=== PATIENT | female | born 1995 | race Caucasian/White ===

== ENCOUNTER 2016-12-17 01:56 | Emergency (ER) | payer BC ==
[2016-12-17] MEDS ORDERED: Ketorolac 60 MG/2 ML SDV IM ONE (02:12)
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
[2016-12-17 03:15] VITALS: BP 121/76
--- NOTE | 2016-12-17 17:39 | CR ---
EXAM DATE: 12/17/16 PATIENT'S AGE: 21 Patient: SUNDAY MERINO Facility: [place], [place] Site . Site : 1995 Study: XRay Knee Right [id number]/[id number] 2:39:07 AM Ordering Physician: Doctor Michael Final Report: INDICATION: Knee injury TECHNIQUE: Knee radiograph 4 views right COMPARISON: None FINDINGS: Bones: Alignment is normal. No acute fractures or aggressive bone lesions identified. Joint spaces: Unremarkable. No knee effusion is seen on the lateral exam. Soft tissues: Unremarkable. No radiopaque foreign bodies are seen. IMPRESSION: 1. No acute osseous injuries are noted. Dictated by: Maxim Hunt MD @ 12/17/2016 02:41:06 (Electronic Signature) Report Signed by Proxy. [facility] HOSPITALYulisa
== END 2016-12-17 03:10 | disposition home or self-care (01) ==
LOC: MW.ED 01:56
DX: S83.91XA Sprain of unspecified site of right knee, initial encounter (principal); Z98.890 Other specified postprocedural states; Z88.0 Allergy status to penicillin; Z88.2 Allergy status to sulfonamides; Z88.8 Allergy status to other drugs, medicaments and biological substances; X58.XXXA Exposure to other specified factors, initial encounter; Y93.72 Activity, wrestling
CPT/HCPCS: 73562; 96372; 99283; J1885

== ENCOUNTER 2016-12-25 10:49 | Emergency (ER) | payer BC ==
[2016-12-25 11:01] VITALS: BP 127/66
[2016-12-25] MEDS ORDERED: Ketorolac 60 MG/2 ML SDV IM ONE (11:20)
--- NOTE | 2016-12-25 11:26 | EDM.PDOC ---
ED HPI GENERAL MEDICAL PROBLEM - General Chief Complaint: Lower Extremity Injury/Pain Stated Complaint: PAIN RT KNEE Time Seen by Provider: 12/25/16 11:14 - History of Present Illness INITIAL COMMENTS - FREE TEXT/NARRATIVE: HISTORY AND PHYSICAL: History of present illness: The patient is a healthy 21-year-old female who presents with complaints of persistent right knee pain for which she is ready being seen in our ortho clinic. The patient sustained the injury on December 17 and was seen here in the ER and is subsequently followed up with Dr. Rosales this past Tuesday. She had an MRI of this knee 2 days ago but she does not know what the results and there are no results currently in the computer for me to review. She says she has been using tramadol but that is not helping and the pain seems to be worse. She was told by the orthopedic surgeon that she should be moving the knee and not wearing the immobilizer and weightbearing and she's been trying to do that but it was more painful today. She has no new swelling and she was concerned that a "nerve" was somehow involved as a discomfort that used to be on the lateral knee is now on the medial knee. She has had no new trauma and no new systemic complaints Review of systems: As per history of present illness and below otherwise all systems reviewed and negative. Past medical history: As per history of present illness and as reviewed below otherwise noncontributory. Surgical history: As per history of present illness and as reviewed below otherwise noncontributory. Social history: No reported history of drug or alcohol abuse. Family history: As per history of present illness and as reviewed below otherwise noncontributory. Physical exam: Gen.: Well-developed well-nourished female who is nontoxic and speaking clearly and easily in ED. Vital signs of been reviewed by me HEENT: Atraumatic, normocephalic, negative for conjunctival pallor or scleral icterus, mucous membranes moist, throat clear, neck supple, nontender, trachea midline. Lungs: Clear to auscultation, breath sounds equal bilaterally, chest nontender. Heart: S1S2, regular rate and rhythm no overt murmurs Skin: Normal turgor no evidence of any overt rashes. Pelvis: Deferred Genitourinary: Deferred. Rectal: Deferred. Extremities: Atraumatic, knee immobilizer is in place but there is no visible soft tissue swelling at the right knee or joint effusion no warmth or erythema. Pulses are intact distally in the right leg negative for cords or calf pain. Neurovascular unremarkable. Neuro: Awake, alert, oriented. Cranial nerves II through XII unremarkable. Cerebellum unremarkable. Motor and sensory unremarkable throughout. Exam nonfocal. Diagnostics: [] Therapeutics: Toradol I discussed with the patient that she would need to follow-up with Dr. Rosales as I am unable to provide any new insight from her MRI as the results are not available. I will give her prescription for some [place] and some Toradol here. Impression: Persistent knee pain Definitive disposition and diagnosis as appropriate pending reevaluation and review of above. right knee Pain Score (Numeric/FACES): 8 - Related Data Allergies Allergy/AdvReac Type Severity Reaction Status Date / Time Penicillins Allergy unsure Verified 12/25/16 10:57 Sulfa (Sulfonamide Allergy unsure Verified 12/25/16 10:57 Antibiotics) steroids Allergy Hives Uncoded 12/25/16 10:57 Home Meds: Home Meds Control 12/17/16 [History] Past Medical History Musculoskeletal History: Reports: Other (See Below) Other Musculoskeletal History: acl,lcl,meniscus Psychiatric History: Reports: None - Infectious Disease History Infectious Disease History: Reports: None - Past Surgical History HEENT Surgical History: Reports: Tonsillectomy Social & Family History - Family History Family Medical History: Noncontributory - Tobacco Use Smoking Status *Q: Current Every Day Smoker Years of Tobacco use: 5 Packs/Tins Daily: 0.5 Second Hand Smoke Exposure: No - Alcohol Use Days Per Week of Alcohol Use: 1 Number of Drinks Per Day: 2 Total Drinks Per Week: 2 - Recreational Drug Use Recreational Drug Use: No Review of Systems - Review of Systems Review Of Systems: ROS reveals no pertinent complaints other than HPI. ED EXAM, GENERAL - Physical Exam Exam: See Below (See dictation) Course - Vital Signs Last Recorded V/S: Last Vital Signs Temp 36.3 C 12/25/16 10:58 Pulse 90 12/25/16 10:58 Resp 18 12/25/16 10:58 BP 127/66 12/25/16 10:58 Pulse Ox 96 12/25/16 10:58 - Orders/Labs/Meds Orders: Active Orders 24 hr Category Date Time Status Ketorolac [Toradol] Med 12/25/16 11:20 Once 60 mg IM ONETIME ONE Departure - Departure Time of Disposition: 11:24 Disposition: Home, Self-Care 01 Condition: Good Clinical Impression: Knee pain Qualifiers: Chronicity: acute Laterality: right Qualified Code(s): M25.561 - Pain in right knee - Discharge Information Forms: ED Department Discharge Additional Instructions: The following information is given to patients seen in the emergency department who are being discharged to home. This information is to outline your options for follow-up care. We provide all patients seen in our emergency department with a follow-up referral. The need for follow-up, as well as the timing and circumstances, are variable depending upon the specifics of your emergency department visit. If you don't have a primary care physician on staff, we will provide you with a referral. We always advise you to contact your personal physician following an emergency department visit to inform them of the circumstance of the visit and for follow-up with them and/or the need for any referrals to a consulting specialist. The emergency department will also refer you to a specialist when appropriate. This referral assures that you have the opportunity for followup care with a specialist. All of these measure are taken in an effort to provide you with optimal care, which includes your followup. Under all circumstances we always encourage you to contact your private physician who remains a resource for coordinating your care. When calling for followup care, please make the office aware that this follow-up is from your recent emergency room visit. If for any reason you are refused follow-up, please contact the [facility] emergency department at and ask to speak to the emergency department charge nurse. [facility]--Orthopedic clinic Professional Building [address] [place] [id number] Ice and elevate his knee immobilizer and crutches as you need and take medications that you have or the newly prescribed [place] as needed. Please call and follow-up with Dr. Rosales in the ortho clinic and return here as needed and as discussed - My Orders Last 24 Hours: My Active Orders 12/25/16 11:20 Ketorolac [Toradol] 60 mg IM ONETIME ONE - Assessment/Plan Last 24 Hours: My Active Orders 12/25/16 11:20 Ketorolac [Toradol] 60 mg IM ONETIME ONE
== END 2016-12-25 11:35 | disposition home or self-care (01) ==
LOC: MW.ED 10:49
DX: M25.561 Pain in right knee (principal); F17.210 Nicotine dependence, cigarettes, uncomplicated; Z98.890 Other specified postprocedural states; Z88.2 Allergy status to sulfonamides; Z88.0 Allergy status to penicillin
CPT/HCPCS: 96372; 99283; J1885

== ENCOUNTER 2017-03-13 12:50 | Emergency (ER) | payer OTHER, BC ==
[2017-03-13] MEDS ORDERED: Diphtheria,Pertussis(Acell),Tetanus Vaccine 0.5 ML Syringe IM ONE (13:02)
--- NOTE | 2017-03-13 13:11 | EDM.PDOC ---
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 When removing her gloves she noticed that the skin on her hand while intact was completely covered in blood. Patient denies noticing any rips or tears in the glove, denies any needlestick injury, but indicates that it is protocol for any lead or body fluid exposure to be worked up.] Review of systems: As per history of present illness and below otherwise all systems reviewed and negative. Past medical history: As per history of present illness and as reviewed below otherwise noncontributory. Surgical history: As per history of present illness and as reviewed below otherwise noncontributory. Social history: No reported history of drug or alcohol abuse. Family history: As per history of present illness and as reviewed below otherwise noncontributory. Physical exam: HEENT: Atraumatic, normocephalic, pupils reactive, negative for conjunctival pallor or scleral icterus, mucous membranes moist, throat clear, neck supple, nontender, trachea midline. Lungs: Clear to auscultation, breath sounds equal bilaterally, chest nontender. Heart: S1S2, regular, negative for clicks, rubs, or JVD. Abdomen: Soft, nondistended, nontender. Negative for masses or hepatosplenomegaly. Negative for costovertebral tenderness. Pelvis: Stable nontender. Genitourinary: Deferred. Rectal: Deferred. Extremities: Atraumatic, negative for cords or calf pain. Neurovascular unremarkable. Neuro: Awake, alert, oriented. Cranial nerves II through XII unremarkable. Cerebellum unremarkable. Motor and sensory unremarkable throughout. Exam nonfocal. Global assessment is benign save the blood and body fluid exposure as noted in the history of history of present illness. Diagnostics: [Labs for hep B, hep C, HIV 1 and 2] Therapeutics: [Adacel] Impression: [#1 Blood-borne pathogen exposure] Plan: [Follow-up with our health and your primary care] Definitive disposition and diagnosis as appropriate pending reevaluation and review of above. - Related Data Allergies Allergy/AdvReac Type Severity Reaction Status Date / Time Penicillins Allergy unsure Verified 03/13/17 13:04 Sulfa (Sulfonamide Allergy unsure Verified 03/13/17 13:04 Antibiotics) steroids Allergy Hives Uncoded 03/13/17 13:04 Home Meds: Home Meds Control 12/17/16 [History] Past Medical History Musculoskeletal History: Reports: Other (See Below) Other Musculoskeletal History: acl,lcl,meniscus injury Psychiatric History: Reports: None - Infectious Disease History Infectious Disease History: Reports: None - Past Surgical History HEENT Surgical History: Reports: Tonsillectomy Social & Family History - Family History Family Medical History: Noncontributory - Tobacco Use Smoking Status *Q: Current Every Day Smoker Years of Tobacco use: 5 Packs/Tins Daily: 0.5 Second Hand Smoke Exposure: No - Alcohol Use Days Per Week of Alcohol Use: 1 Number of Drinks Per Day: 2 Total Drinks Per Week: 2 - Recreational Drug Use Recreational Drug Use: No ED ROS GENERAL - Review of Systems Review Of Systems: See Below (History of present illness) ED EXAM, GENERAL - Physical Exam Exam: See Below (History of present illness) Course - Vital Signs Last Recorded V/S: Last Vital Signs Temp 36.3 C 03/13/17 13:01 Pulse 80 03/13/17 13:01 Resp 12 03/13/17 13:01 BP 114/74 03/13/17 13:01 Pulse Ox 97 03/13/17 13:01 - Orders/Labs/Meds Orders: Active Orders 24 hr Category Date Time Status HEP B SURFACE AB,QNT [REF] Stat Lab 03/13/17 13:02 Ordered HEPATITIS C AB [REF] Stat Lab 03/13/17 13:02 Ordered HIV12 AG/AB 4TH GEN W/REFLEX [CHEM] Stat Lab 03/13/17 13:02 Ordered Meds: Medications Discontinued Medications Generic Name Dose Route Start Last Admin Trade Name Freq PRN Reason Stop Dose Admin Diphtheria/Tetanus/Acell Pertussis 0.5 ml 03/13/17 13:02 Adacel IM 03/13/17 13:03 .ONCE ONE Departure - Departure Time of Disposition: 13:11 Disposition: Home, Self-Care 01 Condition: Good Clinical Impression: Exposure to blood-borne pathogen - Discharge Information Referrals: PCP,None [Primary Care Provider] - Additional Instructions: The following information is given to patients seen in the emergency department who are being discharged to home. This information is to outline your options for follow-up care. We provide all patients seen in our emergency department with a follow-up referral. The need for follow-up, as well as the timing and circumstances, are variable depending upon the specifics of your emergency department visit. If you don't have a primary care physician on staff, we will provide you with a referral. We always advise you to contact your personal physician following an emergency department visit to inform them of the circumstance of the visit and for follow-up with them and/or the need for any referrals to a consulting specialist. The emergency department will also refer you to a specialist when appropriate. This referral assures that you have the opportunity for follow-up care with a specialist. All of these measure are taken in an effort to provide you with optimal care, which includes your follow-up. Under all circumstances we always encourage you to contact your private physician who remains a resource for coordinating your care. When calling for follow-up care, please make the office aware that this follow-up is from your recent emergency room visit. If for any reason you are refused follow-up, please contact the [facility] Emergency Department at and asked to speak to the emergency department charge nurse. Follow-up with occupational health and/or your family practitioner for the results of your tests and for further guidance in regards to testing and treatment protocols Return to ED as needed as discussed - My Orders Last 24 Hours: My Active Orders 03/13/17 13:02 HEP B SURFACE AB,QNT [REF] Stat HEPATITIS C AB [REF] Stat HIV12 AG/AB 4TH GEN W/REFLEX [CHEM] Stat - Assessment/Plan Last 24 Hours: My Active Orders 03/13/17 13:02 HEP B SURFACE AB,QNT [REF] Stat HEPATITIS C AB [REF] Stat HIV12 AG/AB 4TH GEN W/REFLEX [CHEM] Stat
[2017-03-13 16:08] VITALS: BP 110/58
== END 2017-03-13 14:21 | disposition home or self-care (01) ==
LOC: MW.ED 12:50
DX: Z77.21 Contact with and (suspected) exposure to potentially hazardous body fluids (principal); F17.210 Nicotine dependence, cigarettes, uncomplicated; Z88.0 Allergy status to penicillin; Z88.2 Allergy status to sulfonamides; Z98.890 Other specified postprocedural states; Z23 Encounter for immunization
CPT/HCPCS: 36415; 86706; 86803; 87389; 90471; 90715; 99282; 99283-25

== ENCOUNTER 2017-05-31 23:38 | Emergency (ER) | payer OTHER, BC ==
--- NOTE | 2017-05-31 23:44 | EDM.PDOC ---
ED HPI GENERAL MEDICAL PROBLEM - General Chief Complaint: General Stated Complaint: FEELS LIKE SHE IS GOING TO PASS OUT Time Seen by Provider: 05/31/17 23:41 - History of Present Illness INITIAL COMMENTS - FREE TEXT/NARRATIVE: HISTORY AND PHYSICAL: History of present illness: Patient 21-year-old female presents with concern of palpitations should she had this intermittently in past but today she felt generally weak with this she denies drugs denies alcohol abuse denies chest pain or other concern Review of systems: As per history of present illness and below otherwise all systems reviewed and negative. Past medical history: As per history of present illness and as reviewed below otherwise noncontributory. Surgical history: As per history of present illness and as reviewed below otherwise noncontributory. Social history: No reported history of drug or alcohol abuse. Family history: As per history of present illness and as reviewed below otherwise noncontributory. Physical exam: HEENT: Atraumatic, normocephalic, pupils reactive, negative for conjunctival pallor or scleral icterus, mucous membranes moist, throat clear, neck supple, nontender, trachea midline. Lungs: Clear to auscultation, breath sounds equal bilaterally, chest nontender. Heart: S1S2, regular, negative for clicks, rubs, or JVD. Abdomen: Soft, nondistended, nontender. Negative for masses or hepatosplenomegaly. Negative for costovertebral tenderness. Pelvis: Stable nontender. Genitourinary: Deferred. Rectal: Deferred. Extremities: Atraumatic, negative for cords or calf pain. Neurovascular unremarkable. Neuro: Awake, alert, oriented. Cranial nerves II through XII unremarkable. Cerebellum unremarkable. Motor and sensory unremarkable throughout. Exam nonfocal. Diagnostics: CBC CMP troponin chest x-ray EKG TSH Therapeutics: quality assurance monitor body Impression: #1 palpitations Definitive disposition and diagnosis as appropriate pending reevaluation and review of above. - Related Data Allergies Allergy/AdvReac Type Severity Reaction Status Date / Time Penicillins Allergy unsure Verified 06/01/17 00:06 Sulfa (Sulfonamide Allergy unsure Verified 06/01/17 00:06 Antibiotics) steroids Allergy Hives Uncoded 06/01/17 00:06 Past Medical History Musculoskeletal History: Reports: Other (See Below) Other Musculoskeletal History: acl,lcl,meniscus injury Psychiatric History: Reports: None - Infectious Disease History Infectious Disease History: Reports: None - Past Surgical History HEENT Surgical History: Reports: Tonsillectomy Social & Family History - Family History Family Medical History: Noncontributory - Tobacco Use Smoking Status *Q: Current Every Day Smoker Years of Tobacco use: 5 Packs/Tins Daily: 0.5 Second Hand Smoke Exposure: No - Caffeine Use Caffeine Use: Reports: None - Alcohol Use Days Per Week of Alcohol Use: 1 Number of Drinks Per Day: 2 Total Drinks Per Week: 2 - Recreational Drug Use Recreational Drug Use: No ED ROS GENERAL - Review of Systems Review Of Systems: ROS reveals no pertinent complaints other than HPI. ED EXAM, GENERAL - Physical Exam Exam: See Below (See dictation) Course - Vital Signs Last Recorded V/S: Last Vital Signs Temp 36.6 C 05/31/17 23:40 Pulse 87 05/31/17 23:40 Resp 18 05/31/17 23:40 BP 112/74 05/31/17 23:40 Pulse Ox 97 05/31/17 23:40 - Orders/Labs/Meds Orders: Active Orders 24 hr Category Date Time Status EKG 12 Lead [EKG Documentation Completion] [RC] STAT Care 06/01/17 00:27 Active Chest 1V Frontal [CR] Stat Exams 05/31/17 23:46 Taken COMPREHENSIVE METABOLIC PN,CMP [CHEM] Stat Lab 05/31/17 22:50 Results TROPONIN I [CHEM] Stat Lab 05/31/17 22:50 Results TSH [CHEM] Stat Lab 05/31/17 22:50 Results Labs: Laboratory Tests 05/31/17 05/31/17 05/31/17 Range/Units 22:50 22:50 22:50 WBC 9.38 (4.0-11.0) K/uL RBC 4.60 (4.30-5.90) M/uL Hgb 14.0 (12.0-16.0) g/dL Hct 41.2 (36.0-46.0) % MCV 89.6 (80.0-98.0) fL MCH 30.4 (27.0-32.0) pg MCHC 34.0 (31.0-37.0) g/dL RDW Std Deviation 43.2 (28.0-62.0) fl RDW Coeff of Alexis 13 (11.0-15.0) % Plt Count 231 (150-400) K/uL MPV 9.60 (7.40-12.00) fL Neut % (Auto) 30.3 L (48.0-80.0) % Lymph % (Auto) 59.7 H (16.0-40.0) % [place] % (Auto) 7.9 (0.0-15.0) % Eos % (Auto) 1.7 (0.0-7.0) % Baso % (Auto) 0.4 (0.0-1.5) % Neut # (Auto) 2.8 (1.4-5.7) K/uL Lymph # (Auto) 5.6 H (0.6-2.4) K/uL [place] # (Auto) 0.7 (0.0-0.8) K/uL Eos # (Auto) 0.2 (0.0-0.7) K/uL Baso # (Auto) 0.0 (0.0-0.1) K/uL Nucleated RBC % 0.0 /100WBC Nucleated RBCs # 0 K/uL INR 0.97 (0.86-1.11) Sodium 140 (136-146) mmol/L Potassium 3.3 L (3.5-5.1) mmol/L Chloride 107 (98-110) mmol/L Carbon Dioxide 20 L (21-31) mmol/L BUN 13 (6.0-23.0) mg/dL Creatinine 0.8 (0.6-1.5) mg/dL Est Cr Clr Drug Dosing 98.41 mL/min Estimated GFR (MDRD) > 60.0 ml/min Glucose 99 (60-110) mg/dL Calcium 9.3 (8.8-10.8) mg/dL Total Bilirubin 0.3 (0.1-1.5) mg/dL AST 16 (5-40) IU/L ALT 13 (8-54) IU/L Alkaline Phosphatase 51 (40-150) Total Protein 7.3 (6.0-8.0) g/dL Albumin 4.3 (3.5-5.0) g/dL Globulin 3.0 (2.0-3.5) g/dL Albumin/Globulin Ratio 1.4 (1.3-2.8) Departure - Departure Time of Disposition: 00:54 Disposition: Home, Self-Care 01 Condition: Good Clinical Impression: Palpitations - Discharge Information Forms: ED Department Discharge Additional Instructions: The following information is given to patients seen in the emergency department who are being discharged to home. This information is to outline your options for follow-up care. We provide all patients seen in our emergency department with a follow-up referral. The need for follow-up, as well as the timing and circumstances, are variable depending upon the specifics of your emergency department visit. If you don't have a primary care physician on staff, we will provide you with a referral. We always advise you to contact your personal physician following an emergency department visit to inform them of the circumstance of the visit and for follow-up with them and/or the need for any referrals to a consulting specialist. The emergency department will also refer you to a specialist when appropriate. This referral assures that you have the opportunity for followup care with a specialist. All of these measure are taken in an effort to provide you with optimal care, which includes your followup. Under all circumstances we always encourage you to contact your private physician who remains a resource for coordinating your care. When calling for followup care, please make the office aware that this follow-up is from your recent emergency room visit. If for any reason you are refused follow-up, please contact the [facility] emergency department at and asked to speak to the emergency department charge nurse. [facility] [address] [place] [id number] Follow-up primary medical doctor and or clinic above avoid nicotine caffeine ingestants antihistaminics as discussed return as needed as discussed - My Orders Last 24 Hours: My Active Orders 05/31/17 22:50 COMPREHENSIVE METABOLIC PN,CMP [CHEM] Stat TROPONIN I [CHEM] Stat TSH [CHEM] Stat 05/31/17 23:46 Chest 1V Frontal [CR] Stat 06/01/17 00:27 EKG 12 Lead [EKG Documentation Completion] [RC] STAT - Assessment/Plan Last 24 Hours: My Active Orders 05/31/17 22:50 COMPREHENSIVE METABOLIC PN,CMP [CHEM] Stat TROPONIN I [CHEM] Stat TSH [CHEM] Stat 05/31/17 23:46 Chest 1V Frontal [CR] Stat 06/01/17 00:27 EKG 12 Lead [EKG Documentation Completion] [RC] STAT
[2017-06-01 00:43] LABS: CHLORIDE,CL 107 mmol/L (98-110); SODIUM,NA 140 mmol/L (136-146)
[2017-06-01 02:20] VITALS: BP 98/52
--- NOTE | 2017-06-01 11:21 | CR ---
EXAM DATE: 05/31/17 PATIENT'S AGE: 21 Patient: SUNDAY MERINO Facility: [place], [place] Site . Site : 1995 Study: XRay Chest [id number]/[id number] 12:16:23 AM Ordering Physician: Rebeca Matute Final Report: INDICATION: Palpitations TECHNIQUE: Chest 1 view COMPARISON: July 13, 2016 FINDINGS: Cardiovascular and mediastinum: Heart size and vasculature are normal in caliber and appearance. Mediastinum is within normal limits. Lungs and pleural space: No focal consolidation. No sign of pleural effusion. No pneumothorax. Bones and soft tissues: No significant findings. IMPRESSION: No acute cardiopulmonary disease. Dictated by Ortiz Haines MD @ 06/01/2017 12:48:50 AM Dictated by: Ortiz Haines MD @ 06/01/2017 00:48:57 (Electronic Signature) Report Signed by Proxy. [facility] CENTERY[facility]isa
== END 2017-06-01 01:55 | disposition home or self-care (01) ==
LOC: MW.ED 23:38
DX: R00.2 Palpitations (principal); F17.210 Nicotine dependence, cigarettes, uncomplicated; Z88.0 Allergy status to penicillin; Z88.2 Allergy status to sulfonamides
CPT/HCPCS: 36415; 71010; 71010-26; 80053; 84443; 84484; 85025; 85610; 93005; 99284; 99285-25

== ENCOUNTER 2018-01-02 04:35 | Emergency (ER) | payer BC, OTHER ==
--- NOTE | 2018-01-02 04:40 | EDM.PDOC ---
ED HPI GENERAL MEDICAL PROBLEM - General Chief Complaint: Gastrointestinal Problem Stated Complaint: SINTIA FEEL WEAK Time Seen by Provider: 01/02/18 04:39 Source of Information: Reports: Patient History Limitations: Reports: No Limitations - History of Present Illness INITIAL COMMENTS - FREE TEXT/NARRATIVE: HISTORY AND PHYSICAL: History of present illness: 22-year-old female presenting emergency department with chief complaint weakness and nausea starting at 4 AM. Patient states that for 4 AM this morning she woke up feeling nauseous so she did go to the bathroom. When she was in the bathroom she felt generalized weakness and felt that her "legs were wobbly" and her balance was off. She did feel somewhat lightheaded. Denies room spinning sensation. Up until this should entailing her normal healthy self and denies any recent illness. Patient does work for the [employer] department and states that she has been drinking fluids and staying well-hydrated. She denies any sore throat, cough, abdominal pain, diarrhea, dysuria, or hematuria. Currently denies any chest pain, palpitations, shortness of breath, syncopal episodes, or focal neurologic deficits. Patient states that she could not be as she just started her period. She is also on control as well as Prozac. She has been on medications for some time and denies any recent new medications. Review of systems: As per history of present illness and below otherwise all systems reviewed and negative. Past medical history: As per history of present illness and as reviewed below otherwise noncontributory. Surgical history: As per history of present illness and as reviewed below otherwise noncontributory. Social history: No reported history of drug or alcohol abuse. Family history: As per history of present illness and as reviewed below otherwise noncontributory. Physical exam: HEENT: Atraumatic, normocephalic, pupils reactive, negative for conjunctival pallor or scleral icterus, mucous membranes moist, throat clear, neck supple, nontender, trachea midline. Lungs: Clear to auscultation, breath sounds equal bilaterally, chest nontender. Heart: S1S2, regular, negative for clicks, rubs, or JVD. Abdomen: Soft, nondistended, nontender. Negative for masses or hepatosplenomegaly. Negative for costovertebral tenderness. Pelvis: Stable nontender. Genitourinary: Deferred. Rectal: Deferred. Extremities: Atraumatic, negative for cords or calf pain. Neurovascular unremarkable. Neuro: Awake, alert, oriented. Cranial nerves II through XII unremarkable. Cerebellum unremarkable. Motor and sensory unremarkable throughout. Exam nonfocal. Diagnostics: CBC, CMP, UA/UC, orthostatic vital signs Therapeutics: 1 L normal saline 1, Zofran 4 mg IV 1, Phenergan 25 mg by mouth 3 times a day when necessary nausea #12 Impression: Viral upper respiratory tract infection Sinus congestion Nausea without vomiting Plan: CBC, CMP, UA, orthostatic vital signs were unremarkable. Patient did have a mild elevation in lymphocytes and mostly has the beginning of some viral upper respiratory tract infection. She did mention that she recently had a sinus infection and finished a Z-Marcus for this. She does feel somewhat congested and this may be also triggering her lightheadedness. Instructed to use Flonase and Afrin 2 puffs each nostril twice daily 5 days as well as a Rosalia pot 3 times daily for symptomatic relief of her sinus congestion. Also gave the patient a prescription for Phenergan 25 mg by mouth 3 times a day when necessary nausea # 12. She should follow up with primary care provider as we discussed and return to emergency department if she has any new or worsening symptoms. side of neck Pain Score (Numeric/FACES): 2 - Related Data Allergies Allergy/AdvReac Type Severity Reaction Status Date / Time Penicillins Allergy unsure Verified 01/02/18 04:44 Sulfa (Sulfonamide Allergy unsure Verified 01/02/18 04:44 Antibiotics) steroids Allergy Hives Uncoded 01/02/18 04:44 Home Meds: Home Meds Control Pills 1 tab PO DAILY 01/02/18 [History] FLUoxetine [PROzac] 10 mg PO DAILY 01/02/18 [History] Past Medical History - Past Health History Medical/Surgical History: Denies Medical/Surgical History Other Cardiovascular History: palpitations Musculoskeletal History: Reports: Other (See Below) Other Musculoskeletal History: acl,lcl,meniscus injury Psychiatric History: Reports: None - Infectious Disease History Infectious Disease History: Reports: None - Past Surgical History HEENT Surgical History: Reports: Tonsillectomy Social & Family History - Family History Family Medical History: Noncontributory - Caffeine Use Caffeine Use: Reports: None Caffeine Use Comment: 1cup/day ED ROS GENERAL - Review of Systems Review Of Systems: ROS reveals no pertinent complaints other than HPI. ED EXAM, GENERAL - Physical Exam Exam: See Below Course - Vital Signs Last Recorded V/S: Last Vital Signs Temp 97.9 F 01/02/18 04:40 Pulse 84 01/02/18 04:40 Resp 18 01/02/18 04:40 BP 143/96 H 01/02/18 04:40 Pulse Ox 98 01/02/18 04:40 Orthostatic Blood Pressure [ 136/96 Standing] Orthostatic Blood Pressure [ 139/93 Sitting] Orthostatic Blood Pressure [ 129/84 Supine] - Orders/Labs/Meds Orders: Active Orders 24 hr Category Date Time Status Orthostatic Vital Signs [RC] ASDIRECTED Care 01/02/18 04:52 Active CULTURE URINE [RM] Stat Lab 01/02/18 05:30 Ordered UA W/MICROSCOPIC [URIN] Stat Lab 01/02/18 05:30 Ordered Labs: Laboratory Tests 01/02/18 01/02/18 01/02/18 Range/Units 04:45 04:45 05:30 WBC 8.28 (4.0-11.0) K/uL RBC 5.35 (4.30-5.90) M/uL Hgb 16.0 (12.0-16.0) g/dL Hct 47.6 H (36.0-46.0) % MCV 89.0 (80.0-98.0) fL MCH 29.9 (27.0-32.0) pg MCHC 33.6 (31.0-37.0) g/dL RDW Std Deviation 42.2 (28.0-62.0) fl RDW Coeff of Alexis 13 (11.0-15.0) % Plt Count 248 (150-400) K/uL MPV 9.30 (7.40-12.00) fL Neut % (Auto) 22.3 L (48.0-80.0) % Lymph % (Auto) 67.9 H (16.0-40.0) % [place] % (Auto) 7.0 (0.0-15.0) % Eos % (Auto) 2.4 (0.0-7.0) % Baso % (Auto) 0.4 (0.0-1.5) % Neut # (Auto) 1.9 (1.4-5.7) K/uL Lymph # (Auto) 5.6 H (0.6-2.4) K/uL [place] # (Auto) 0.6 (0.0-0.8) K/uL Eos # (Auto) 0.2 (0.0-0.7) K/uL Baso # (Auto) 0.0 (0.0-0.1) K/uL Nucleated RBC % 0.0 /100WBC Nucleated RBCs # 0 K/uL Sodium 138 (136-145) mmol/L Potassium 3.9 (3.5-5.1) mmol/L Chloride 100 (98-107) mmol/L Carbon Dioxide 28.9 (21.0-32.0) mmol/L BUN 13 (7.0-18.0) mg/dL Creatinine 0.9 (0.6-1.0) mg/dL Est Cr Clr Drug Dosing 86.73 mL/min Estimated GFR (MDRD) > 60.0 ml/min Glucose 94 (74-106) mg/dL Calcium 9.4 (8.5-10.1) mg/dL Total Bilirubin 0.3 (0.2-1.0) mg/dL AST 23 (15-37) IU/L ALT 27 (14-63) IU/L Alkaline Phosphatase 60 (46-116) U/L Total Protein 8.1 (6.4-8.2) g/dL Albumin 4.2 (3.4-5.0) g/dL Globulin 3.9 H (2.0-3.5) g/dL Albumin/Globulin Ratio 1.1 L (1.3-2.8) Urine Color YELLOW Urine Appearance CLEAR Urine pH 6.5 (5.0-8.0) Ur Specific [place] 1.010 (1.001-1.035) Urine Protein NEGATIVE (NEGATIVE) mg/dL Urine Glucose (UA) NEGATIVE (NEGATIVE) mg/dL Urine Ketones NEGATIVE (NEGATIVE) mg/dL Urine Occult Blood NEGATIVE (NEGATIVE) Urine Nitrite NEGATIVE (NEGATIVE) Urine Bilirubin NEGATIVE (NEGATIVE) Urine Urobilinogen 0.2 (<2.0) EU/dL Ur Leukocyte Esterase NEGATIVE (NEGATIVE) Urine RBC 0-2 (0-2/HPF) Urine WBC 0-1 (0-5/HPF) Ur Epithelial Cells FEW (NONE-FEW) Urine Bacteria FEW (NEGATIVE) Meds: Medications Discontinued Medications Generic Name Dose Route Start Last Admin Trade Name Robles PRN Reason Stop Dose Admin Sodium Chloride 1,000 mls @ 999 mls/hr 01/02/18 04:52 01/02/18 04:57 Normal Saline IV 01/02/18 05:52 999 mls/hr STAT ONE Administration Ondansetron HCl 4 mg 01/02/18 04:52 01/02/18 04:58 Zofran IVPUSH 01/02/18 04:53 4 mg ONETIME ONE Administration Departure - Departure Time of Disposition: 06:25 Disposition: Home, Self-Care 01 Condition: Good Clinical Impression: Viral upper respiratory tract infection, Nasal sinus congestion, Nausea without vomiting - Discharge Information Referrals: Elizabeth Pierre MD [Primary Care Provider] - Forms: ED Department Discharge Additional Instructions: My general discharge The following information is given to patients seen in the emergency department who are being discharged to home. This information is to outline your options for follow-up care. We provide all patients seen in our emergency department with a follow-up referral. The need for follow-up, as well as the timing and circumstances, are variable depending upon the specifics of your emergency department visit. If you don't have a primary care physician on staff, we will provide you with a referral. We always advise you to contact your personal physician following an emergency department visit to inform them of the circumstance of the visit and for follow-up with them and/or the need for any referrals to a consulting specialist. The emergency department will also refer you to a specialist when appropriate. This referral assures that you have the opportunity for follow-up care with a specialist. All of these measure are taken in an effort to provide you with optimal care, which includes your follow-up. Under all circumstances we always encourage you to contact your private physician who remains a resource for coordinating your care. When calling for follow-up care, please make the office aware that this follow-up is from your recent emergency room visit. If for any reason you are refused follow-up, please contact the [facility] Emergency Department at and asked to speak to the emergency department charge nurse. 1. Take medications as prescribed. 2. Follow-up with primary care provider. Be sure to telomeres in the emergency department and a wish you to be seen as soon as possible. 3. Use Flonase, Afrin, and Rosalia pot as we discussed 4. Return to emergency department if you have any new or worsening symptoms. - My Orders Last 24 Hours: My Active Orders 01/02/18 04:52 Orthostatic Vital Signs [RC] ASDIRECTED 01/02/18 05:30 CULTURE URINE [RM] Stat UA W/MICROSCOPIC [URIN] Stat - Assessment/Plan Last 24 Hours: My Active Orders 01/02/18 04:52 Orthostatic Vital Signs [RC] ASDIRECTED 01/02/18 05:30 CULTURE URINE [RM] Stat UA W/MICROSCOPIC [URIN] Stat
[2018-01-02] MEDS ORDERED: Sodium Chloride 0.9% 1,000 ML IV ONE (04:52)
[2018-01-02] MEDS ORDERED: Ondansetron 4 MG/2 ML SDV IVPUSH ONE (04:52)
[2018-01-02 05:17] LABS: CHLORIDE,CL 100 mmol/L (98-107); SODIUM,NA 138 mmol/L (136-145)
[2018-01-02 07:08] VITALS: BP 104/66
== END 2018-01-02 06:47 | disposition home or self-care (01) ==
LOC: MW.ED 04:35
DX: J06.9 Acute upper respiratory infection, unspecified (principal); R11.0 Nausea; Z88.0 Allergy status to penicillin; Z88.2 Allergy status to sulfonamides; Z88.5 Allergy status to narcotic agent; Z79.899 Other long term (current) drug therapy
CPT/HCPCS: 36415; 80053; 81001; 85025; 87086; 96361; 96374; 99285; J2405; J7040; 99283

== ENCOUNTER 2018-03-16 20:16 | Emergency (ER) | payer BC, OTHER ==
--- NOTE | 2018-03-16 20:42 | EDM.PDOC ---
<Demi Garcia - Last Filed: 03/16/18 22:17> ED HPI GENERAL MEDICAL PROBLEM - General Chief Complaint: Gastrointestinal Problem Stated Complaint: ABDOMINAL PAIN Time Seen by Provider: 03/16/18 20:37 Source of Information: Reports: Patient History Limitations: Reports: No Limitations - History of Present Illness INITIAL COMMENTS - FREE TEXT/NARRATIVE: HISTORY AND PHYSICAL: []22-year-old female presenting with abdominal pain extending around to the right flank History of Present Illness: []Patient has had 4 episodes of nausea and vomiting hour and a half She is curled up in a position as this feels better She had fried chicken for dinner, that was premade, and 15 minutes later started throwing up She is on oral contraceptives an antidepressant Last menstrual cycle was four weeks ago Review of Systems: As per history of present illness and below otherwise all systems reviewed and negative. Past medical history: As per history of present illness and as reviewed below otherwise noncontributory. Surgical history: As per history of present illness and as reviewed below otherwise noncontributory. Social history: No reported history of drug or alcohol abuse. Family history: As per history of present illness and as reviewed below otherwise noncontributory. Physical exam: Alert and oriented answering questions appropriately in full sentences without any shortness of breath. HEENT: Atraumatic, normocehpalic, pupils reactive, negative for conjunctival pallor or scleral icterus, mucous membranes moist, throat clear, neck supple, nontender, trachea midline. Lungs: Clear to auscultation, breath sounds equal bilaterally, chest non tender. Heart: S1S2, regular, negative for clicks, rubs, or JVD. Abdomen: Soft, nondistended, tender below the umbilicus. Negative for masses or hepatossplenmegaly.Positive for right costovertebral tenderness. Pelvis: Stable nontender. Genitourinary: Deferred. Rectal: Deferred Extremities: Atraumatic, negative for cords or calf pain. Neurovascular unremarkable. Neuro: Awake, alert, oriented. Cranial nerves II through XII unremarkable. Cerebellum unremarkable. Motor and sensory unremarkable throughout. Exam nonfocal. Report of patient has been handed over to Dr. Novak she will assume care of this patient Diagnostics: []CBC CMP amylase lipase hCG quantitative abdomen pelvis CT with contrast UA urine culture Therapeutics: []1 L normal saline Zofran IV Toradol IV Impression: [] Plan: [] Definitive disposition and diagnosis as appropriate pending reevaluation and review of above. Onset: Today, Sudden Duration: Hour(s):, Getting Worse Location: Reports: Abdomen Severity: Moderate Improves with: Reports: None Worsens with: Reports: None Associated Symptoms: Reports: Nausea/Vomiting right lower quadrant and right flank Pain Score (Numeric/FACES): 7 - Related Data Allergies Allergy/AdvReac Type Severity Reaction Status Date / Time Penicillins Allergy unsure Verified 03/16/18 20:22 Sulfa (Sulfonamide Allergy unsure Verified 03/16/18 20:22 Antibiotics) steroids Allergy Hives Uncoded 01/02/18 04:44 Home Meds: Home Meds Control Pills 1 tab PO DAILY 01/02/18 [History] FLUoxetine [PROzac] 10 mg PO DAILY 01/02/18 [History] Past Medical History - Past Health History Medical/Surgical History: Denies Medical/Surgical History Other Cardiovascular History: palpitations Respiratory History: Reports: None Gastrointestinal History: Reports: None Genitourinary History: Reports: None 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 Musculoskeletal History: Reports: Other (See Below) Other Musculoskeletal History: acl,lcl,meniscus injury Neurological History: Reports: None Psychiatric History: Reports: None Endocrine/Metabolic History: Reports: None Hematologic History: Reports: None Immunologic History: Reports: None Oncologic (Cancer) History: Reports: None Dermatologic History: Reports: None - Infectious Disease History Infectious Disease History: Reports: None - Past Surgical History Head Surgeries/Procedures: Reports: None HEENT Surgical History: Reports: Tonsillectomy Social & Family History - Family History Family Medical History: Noncontributory - Tobacco Use Smoking Status *Q: Current Every Day Smoker Years of Tobacco use: 9 Packs/Tins Daily: 0.5 - Caffeine Use Caffeine Use: Reports: None Caffeine Use Comment: 1cup/day - Recreational Drug Use Recreational Drug Use: No ED ROS GENERAL - Review of Systems Review Of Systems: ROS reveals no pertinent complaints other than HPI. ED EXAM, GI/ABD - Physical Exam Exam: See Below (See dictation) Course - Vital Signs Last Recorded V/S: Last Vital Signs Temp 36.6 C 03/16/18 20:23 Pulse 86 03/16/18 20:23 Resp 14 03/16/18 20:23 BP 133/87 03/16/18 20:23 Pulse Ox 98 03/16/18 20:23 - Orders/Labs/Meds Orders: Active Orders 24 hr Category Date Time Status Abdomen Pelvis w Cont [CT] Stat Exams 03/16/18 20:46 Taken CULTURE URINE [RM] Stat Lab 03/16/18 20:58 Received Sodium Chloride 0.9% [Saline Flush] Med 03/16/18 20:43 Active 10 ml FLUSH ASDIRECTED PRN Sodium Chloride 0.9% [Saline Flush] Med 03/16/18 20:43 Active 2.5 ml FLUSH ASDIRECTED PRN Saline Lock Insert [OM.PC] Stat Oth 03/16/18 20:42 Ordered Medication Orders Sodium Chloride (Saline Flush) 10 ml FLUSH ASDIRECTED PRN PRN Reason: Keep Vein Open Sodium Chloride (Saline Flush) 2.5 ml FLUSH ASDIRECTED PRN PRN Reason: Keep Vein Open Labs: Laboratory Tests 03/16/18 03/16/18 03/16/18 Range/Units 20:50 20:50 20:50 WBC 8.43 (4.0-11.0) K/uL RBC 4.43 (4.30-5.90) M/uL Hgb 13.3 (12.0-16.0) g/dL Hct 39.5 (36.0-46.0) % MCV 89.2 (80.0-98.0) fL MCH 30.0 (27.0-32.0) pg MCHC 33.7 (31.0-37.0) g/dL RDW Std Deviation 40.7 (28.0-62.0) fl RDW Coeff of Alexis 13 (11.0-15.0) % Plt Count 256 (150-400) K/uL MPV 9.20 (7.40-12.00) fL Neut % (Auto) 33.2 L (48.0-80.0) % Lymph % (Auto) 43.5 H (16.0-40.0) % Divide % (Auto) 8.5 (0.0-15.0) % Eos % (Auto) 14.4 H (0.0-7.0) % Baso % (Auto) 0.4 (0.0-1.5) % Neut # (Auto) 2.8 (1.4-5.7) K/uL Lymph # (Auto) 3.7 H (0.6-2.4) K/uL Divide # (Auto) 0.7 (0.0-0.8) K/uL Eos # (Auto) 1.2 H (0.0-0.7) K/uL Baso # (Auto) 0.0 (0.0-0.1) K/uL Nucleated RBC % 0.0 /100WBC Nucleated RBCs # 0 K/uL Sodium 139 (136-145) mmol/L Potassium 3.2 L (3.5-5.1) mmol/L Chloride 104 (98-107) mmol/L Carbon Dioxide 27.1 (21.0-32.0) mmol/L BUN 12 (7.0-18.0) mg/dL Creatinine 0.9 (0.6-1.0) mg/dL Est Cr Clr Drug Dosing 86.73 mL/min Estimated GFR (MDRD) > 60.0 ml/min Glucose 116 H (74-106) mg/dL Calcium 9.0 (8.5-10.1) mg/dL Total Bilirubin 0.2 (0.2-1.0) mg/dL AST 15 (15-37) IU/L ALT 17 (14-63) IU/L Alkaline Phosphatase 48 (46-116) U/L Total Protein 7.0 (6.4-8.2) g/dL Albumin 3.6 (3.4-5.0) g/dL Globulin 3.4 (2.0-3.5) g/dL Albumin/Globulin Ratio 1.1 L (1.3-2.8) Amylase 40 (25-115) U/L Lipase 165 (73-393) U/L HCG, Quant 1.0 mIU/mL Urine Color Urine Appearance Urine pH (5.0-8.0) Ur Specific Eva (1.001-1.035) Urine Protein (NEGATIVE) mg/dL Urine Glucose (UA) (NEGATIVE) mg/dL Urine Ketones (NEGATIVE) mg/dL Urine Occult Blood (NEGATIVE) Urine Nitrite (NEGATIVE) Urine Bilirubin (NEGATIVE) Urine Urobilinogen (<2.0) EU/dL Ur Leukocyte Esterase (NEGATIVE) 09/13/18 Range/Units 21:00 WBC (4.0-11.0) K/uL RBC (4.30-5.90) M/uL Hgb (12.0-16.0) g/dL Hct (36.0-46.0) % MCV (80.0-98.0) fL MCH (27.0-32.0) pg MCHC (31.0-37.0) g/dL RDW Std Deviation (28.0-62.0) fl RDW Coeff of Alexis (11.0-15.0) % Plt Count (150-400) K/uL MPV (7.40-12.00) fL Neut % (Auto) (48.0-80.0) % Lymph % (Auto) (16.0-40.0) % Divide % (Auto) (0.0-15.0) % Eos % (Auto) (0.0-7.0) % Baso % (Auto) (0.0-1.5) % Neut # (Auto) (1.4-5.7) K/uL Lymph # (Auto) (0.6-2.4) K/uL Divide # (Auto) (0.0-0.8) K/uL Eos # (Auto) (0.0-0.7) K/uL Baso # (Auto) (0.0-0.1) K/uL Nucleated RBC % /100WBC Nucleated RBCs # K/uL Sodium (136-145) mmol/L Potassium (3.5-5.1) mmol/L Chloride (98-107) mmol/L Carbon Dioxide (21.0-32.0) mmol/L BUN (7.0-18.0) mg/dL Creatinine (0.6-1.0) mg/dL Est Cr Clr Drug Dosing mL/min Estimated GFR (MDRD) ml/min Glucose (74-106) mg/dL Calcium (8.5-10.1) mg/dL Total Bilirubin (0.2-1.0) mg/dL AST (15-37) IU/L ALT (14-63) IU/L Alkaline Phosphatase (46-116) U/L Total Protein (6.4-8.2) g/dL Albumin (3.4-5.0) g/dL Globulin (2.0-3.5) g/dL Albumin/Globulin Ratio (1.3-2.8) Amylase (25-115) U/L Lipase (73-393) U/L HCG, Quant mIU/mL Urine Color YELLOW Urine Appearance SLT CLOUDY Urine pH 7.5 (5.0-8.0) Ur Specific Eva 1.020 (1.001-1.035) Urine Protein NEGATIVE (NEGATIVE) mg/dL Urine Glucose (UA) NEGATIVE (NEGATIVE) mg/dL Urine Ketones 15 H (NEGATIVE) mg/dL Urine Occult Blood TRACE-INTACT (NEGATIVE) Urine Nitrite NEGATIVE (NEGATIVE) Urine Bilirubin NEGATIVE (NEGATIVE) Urine Urobilinogen 0.2 (<2.0) EU/dL Ur Leukocyte Esterase NEGATIVE (NEGATIVE) Meds: Medications Generic Name Dose Route Start Last Admin Trade Name Freq PRN Reason Stop Dose Admin Sodium Chloride 10 ml 03/16/18 20:43 Saline Flush FLUSH ASDIRECTED PRN Keep Vein Open Sodium Chloride 2.5 ml 03/16/18 20:43 Saline Flush FLUSH ASDIRECTED PRN Keep Vein Open Discontinued Medications Generic Name Dose Route Start Last Admin Trade Name Freq PRN Reason Stop Dose Admin Sodium Chloride 1,000 mls @ 999 mls/hr 03/16/18 20:43 03/16/18 20:57 Normal Saline IV 03/16/18 21:43 999 mls/hr STAT ONE Administration Iopamidol 100 ml 03/16/18 22:23 03/16/18 22:24 Isovue Multipack-370 (76%) IVPUSH 03/16/18 22:24 100 ml ONETIME STA Administration Ketorolac Tromethamine 30 mg 03/16/18 20:43 03/16/18 20:57 Toradol IVPUSH 03/16/18 20:44 30 mg ONETIME ONE Administration Ondansetron HCl 4 mg 03/16/18 20:43 03/16/18 20:58 Zofran IVPUSH 03/16/18 20:44 4 mg ONETIME ONE Administration Departure - Departure Time of Disposition: 22:18 Disposition: Home, Self-Care 01 Condition: Fair Clinical Impression: Vomiting, Abdominal pain - Discharge Information Referrals: lEizabeth Pierre MD [Primary Care Provider] - Forms: ED Department Discharge Additional Instructions: The following information is given to patients seen in the emergency department who are being discharged to home. This information is to outline your options for follow-up care. We provide all patients seen in our emergency department with a follow-up referral. The need for follow-up, as well as the timing and circumstances, are variable depending upon the specifics of your emergency department visit. If you don't have a primary care physician on staff, we will provide you with a referral. We always advise you to contact your personal physician following an emergency department visit to inform them of the circumstance of the visit and for follow-up with them and/or the need for any referrals to a consulting specialist. The emergency department will also refer you to a specialist when appropriate. This referral assures that you have the opportunity for followup care with a specialist. All of these measure are taken in an effort to provide you with optimal care, which includes your followup. Under all circumstances we always encourage you to contact your private physician who remains a resource for coordinating your care. When calling for followup care, please make the office aware that this follow-up is from your recent emergency room visit. If for any reason you are refused follow-up, please contact the [facility] emergency department at and ask to speak to the emergency department charge nurse. [facility]- [place] [address] Push hydration and avoid caffeinated products and eat only bland bites of food. Use Zofran as needed and as prescribed from [facility]. Please call and follow- up in your clinic with your provider for further care and reevaluation. Return to ER as needed and as discussed <Latoya Novak - Last Filed: 03/16/18 22:38> ED HPI GENERAL MEDICAL PROBLEM - History of Present Illness INITIAL COMMENTS - FREE TEXT/NARRATIVE: This is Dr. Novak dictating an addendum note as I assumed care of this case at 10 PM. I agree with history and physical as above and the patient specifically tells me that she felt completely fine until she ate the chicken and the symptoms started afterwards. She is having less nausea now and is currently taking ice chips. I discussed with her all testing results including the CT scan and she is aware of the incidental liver lesion that is likely a cyst but she can follow up with her provider in the clinic. I've advised her on a bland diet push hydration and will give her Zofran from [facility]. Impression: Upper abdominal pain with vomiting likely food related stable improved ED ROS GENERAL - Review of Systems Review Of Systems: ROS reveals no pertinent complaints other than HPI. Departure - Departure Time of Disposition: 22:37 Condition: Good
[2018-03-16] MEDS ORDERED: Sodium Chloride 0.9% 1,000 ML IV ONE (20:43)
[2018-03-16] MEDS ORDERED: Ketorolac 30 MG/ML SDV IVPUSH ONE (20:43)
[2018-03-16] MEDS ORDERED: Sodium Chloride 0.9% 2.5 ML Syringe FLUSH PRN (20:43)
[2018-03-16] MEDS ORDERED: Sodium Chloride 0.9% 10 ML Syringe FLUSH PRN (20:43)
[2018-03-16] MEDS ORDERED: Ondansetron 4 MG/2 ML SDV IVPUSH ONE (20:43)
[2018-03-16 21:29] LABS: CHLORIDE,CL 104 mmol/L (98-107); SODIUM,NA 139 mmol/L (136-145)
[2018-03-16] MEDS ORDERED: Iopamidol 755 MG/ML 500 ML Multipack Bottle IVPUSH STA (22:23)
[2018-03-16 22:50] VITALS: BP 115/77
== END 2018-03-16 22:50 | disposition home or self-care (01) ==
LOC: MW.ED 20:16
DX: R10.9 Unspecified abdominal pain (principal); R11.2 Nausea with vomiting, unspecified; F17.210 Nicotine dependence, cigarettes, uncomplicated; Z88.0 Allergy status to penicillin; Z88.2 Allergy status to sulfonamides; Z88.8 Allergy status to other drugs, medicaments and biological substances; Z79.899 Other long term (current) drug therapy
CPT/HCPCS: 36415; 74177; 80053; 81003; 82150; 83690; 84702; 85025; 87086; 87088; 87186; 96361; 96374; 96375; 99284; J1885; J2405; J7040; Q9967

== ENCOUNTER 2018-04-01 12:19 | Emergency (ER) | payer BC ==
--- NOTE | 2018-04-01 12:52 | EDM.PDOC ---
ED HPI GENERAL MEDICAL PROBLEM - General Chief Complaint: General Stated Complaint: PT SPOKE TO NURSE Time Seen by Provider: 04/01/18 12:50 Source of Information: Reports: Patient History Limitations: Reports: No Limitations - History of Present Illness INITIAL COMMENTS - FREE TEXT/NARRATIVE: HISTORY AND PHYSICAL: History of present illness: Patient is a 22-year-old female here with complaint of right leg pain. She states that she has had it for a couple of months but today is worse. She reports that she has a family history of blood clots and she is concerned about this. She denies any fevers, chills, chest pain, shortness of breath, nausea, vomiting, lower extremity numbess or tingling, back pain or injury. Review of systems: As per history of present illness and below otherwise all systems reviewed and negative. Past medical history: As per history of present illness and as reviewed below otherwise noncontributory. Surgical history: As per history of present illness and as reviewed below otherwise noncontributory. Social history: No reported history of drug or alcohol abuse. Family history: As per history of present illness and as reviewed below otherwise noncontributory. Physical exam: General: Patient sitting comfortably in no acute distress and nontoxic appearing HEENT: Atraumatic, normocephalic, pupils reactive, negative for conjunctival pallor or scleral icterus, mucous membranes moist, throat clear, neck supple, nontender, trachea midline. No meningeal signs. Lungs: Clear to auscultation, breath sounds equal bilaterally, chest nontender. Heart: S1S2, regular, negative for clicks, rubs, or overt murmur. Abdomen: Soft, nondistended, nontender. Negative for masses or hepatosplenomegaly. Negative for costovertebral tenderness. Pelvis: Stable nontender. Genitourinary: Deferred. Rectal: Deferred. Extremities: Atraumatic, negative for cords or calf pain. Neurovascular unremarkable. Neuro: Awake, alert, oriented. Cranial nerves II through XII unremarkable. Cerebellum unremarkable. Motor and sensory unremarkable throughout. Exam nonfocal. Notes: Diagnostics: Venous doppler US, right Therapeutics: None Prescriptions: None Impression: Right leg pain Plan: 1. Heat and gentle stretching as discussed. 2/ Follow up with primary care provider. 3. Return to ED as needed as discussed Definitive disposition and diagnosis as appropriate pending reevaluation and review of above. Right Upper Leg Pain Score (Numeric/FACES): 4 - Related Data Allergies Allergy/AdvReac Type Severity Reaction Status Date / Time Penicillins Allergy Hives Verified 04/01/18 12:29 Sulfa (Sulfonamide Allergy unsure Verified 04/01/18 12:29 Antibiotics) steroids Allergy Hives Uncoded 04/01/18 12:29 Home Meds: Home Meds FLUoxetine [PROzac] 10 mg PO DAILY 01/02/18 [History] Ethinyl Estradiol/Drospirenone [Ocella 3 MG-0.03 MG] 1 tab PO DAILY 04/01/18 [ History] Past Medical History - Past Health History Medical/Surgical History: Denies Medical/Surgical History Other Cardiovascular History: palpitations Respiratory History: Reports: None Gastrointestinal History: Reports: None Genitourinary History: Reports: None 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 Musculoskeletal History: Reports: Other (See Below) Other Musculoskeletal History: R acl,lcl,meniscus injury Neurological History: Reports: None Psychiatric History: Reports: Anxiety Endocrine/Metabolic History: Reports: None Hematologic History: Reports: None Immunologic History: Reports: None Oncologic (Cancer) History: Reports: None Dermatologic History: Reports: None - Infectious Disease History Infectious Disease History: Reports: None - Past Surgical History Head Surgeries/Procedures: Reports: None HEENT Surgical History: Reports: Oral Surgery, Tonsillectomy Social & Family History - Family History Family Medical History: Noncontributory - Tobacco Use Smoking Status *Q: Current Every Day Smoker Years of Tobacco use: 10 Packs/Tins Daily: 0.5 - Caffeine Use Caffeine Use: Reports: None Caffeine Use Comment: 1cup/day - Recreational Drug Use Recreational Drug Use: No ED ROS GENERAL - Review of Systems Review Of Systems: ROS reveals no pertinent complaints other than HPI. ED EXAM, GENERAL - Physical Exam Exam: See Below (see dictation) Course - Vital Signs Last Recorded V/S: Last Vital Signs Temp 37.0 C 04/01/18 12:25 Pulse 99 04/01/18 12:25 Resp 16 04/01/18 12:25 BP 126/84 04/01/18 12:25 Pulse Ox 98 04/01/18 12:25 - Orders/Labs/Meds Orders: Active Orders 24 hr Category Date Time Status Venous Doppler Lwr Ext Rt [US] Stat Exams 04/01/18 12:31 Taken Departure - Departure Time of Disposition: 13:51 Disposition: Home, Self-Care 01 Condition: Good Clinical Impression: Right leg pain - Discharge Information Referrals: PCP,None [Primary Care Provider] - Forms: ED Department Discharge Additional Instructions: The following information is given to patients seen in the emergency department who are being discharged to home. This information is to outline your options for follow-up care. We provide all patients seen in our emergency department with a follow-up referral. The need for follow-up, as well as the timing and circumstances, are variable depending upon the specifics of your emergency department visit. If you don't have a primary care physician on staff, we will provide you with a referral. We always advise you to contact your personal physician following an emergency department visit to inform them of the circumstance of the visit and for follow-up with them and/or the need for any referrals to a consulting specialist. The emergency department will also refer you to a specialist when appropriate. This referral assures that you have the opportunity for follow-up care with a specialist. All of these measure are taken in an effort to provide you with optimal care, which includes your follow-up. Under all circumstances we always encourage you to contact your private physician who remains a resource for coordinating your care. When calling for follow-up care, please make the office aware that this follow-up is from your recent emergency room visit. If for any reason you are refused follow-up, please contact the [facility] Emergency Department at and asked to speak to the emergency department charge nurse. [facility] Primary [facility] [address] [place] [id number] 1. Heat and gentle stretching as discussed. 2. Follow up with primary care provider. 3. Return to ED as needed as discussed - My Orders Last 24 Hours: My Active Orders 04/01/18 12:31 Venous Doppler Lwr Ext Rt [US] Stat - Assessment/Plan Last 24 Hours: My Active Orders 04/01/18 12:31 Venous Doppler Lwr Ext Rt [US] Stat
[2018-04-01 20:28] VITALS: BP 107/61
--- NOTE | 2018-04-03 13:21 | US ---
EXAM DATE: 04/01/18 PATIENT'S AGE: 22 Patient: SUNDAY MERINO Facility: [place], [place] Site . Site : 1995 Study: US Extremity Right [id number] 1:[id number] PM Ordering Physician: Doctor Michael Final Report: INDICATION: Right lower extremity pain and swelling. TECHNIQUE: Ultrasound venous duplex lower right extremity. Compression venous exam was performed using wu-scale, color Doppler, and spectral Doppler imaging. COMPARISON: None. FINDINGS: Sonographic imaging demonstrates the right common femoral, deep femoral, superficial femoral, popliteal, posterior tibial and greater saphenous and the contralateral left common femoral veins to be fully compressible with normal color Doppler blood flow. Right groin lymph nodes imaged appear within normal. IMPRESSION: Negative right lower extremity venous ultrasound for deep venous thrombosis. Dictated by Марина Swenson MD @ Apr 01 2018 1:46PM (Electronic Signature) Report Signed by Proxy. TYSON
== END 2018-04-01 14:05 | disposition home or self-care (01) ==
LOC: MW.ED 12:19
DX: M79.651 Pain in right thigh (principal); F17.210 Nicotine dependence, cigarettes, uncomplicated; Z88.0 Allergy status to penicillin; Z88.2 Allergy status to sulfonamides; Z88.8 Allergy status to other drugs, medicaments and biological substances
CPT/HCPCS: 93971-26-RT; 93971-RT; 99282; 99283-25

== ENCOUNTER 2018-10-10 10:12 | Emergency (ER) | payer BC ==
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
--- NOTE | 2018-10-10 10:54 | CT ---
EXAMINATION: Non contrast CT head. Coronal and sagittal reformats. HISTORY: Trauma FINDINGS: No evidence of intra or extra axial hemorrhage, mass, midline shift, hydrocephalus or edema. No hypoattenuation changes in the major vascular territories to suggest acute infarct. No abnormal intracranial calcifications are detected. No evidence of substantial vascular calcifications. Paranasal sinuses and mastoid air cells are well aerated without substantial findings. Pituitary fossa appears unremarkable. The orbits and globes are symmetric. Calvarium is intact. No evidence of skull fracture. IMPRESSION: No acute intracranial findings.
[2018-10-10 11:13] VITALS: BP 119/78
== END 2018-10-10 11:10 | disposition home or self-care (01) ==
LOC: MW.ED 10:12
DX: S06.0X0A Concussion without loss of consciousness, initial encounter (principal); F17.210 Nicotine dependence, cigarettes, uncomplicated; F41.9 Anxiety disorder, unspecified; Z79.899 Other long term (current) drug therapy; Z88.0 Allergy status to penicillin; Z88.2 Allergy status to sulfonamides; Z88.8 Allergy status to other drugs, medicaments and biological substances; W22.8XXA Striking against or struck by other objects, initial encounter
CPT/HCPCS: 70450; 70450-26; 99282; 99284-25

== ENCOUNTER 2020-06-22 17:10 | Emergency (ER) | payer OTHER ==
[2020-06-22] MEDS ORDERED: Ondansetron 4 MG/2 ML SDV IVPUSH ONE ×2 (17:31→19:27)
[2020-06-22] MEDS ORDERED: Sodium Chloride 0.9% 1,000 ML IV ONE (17:31)
[2020-06-22] MEDS: Pantoprazole 80 MG in Sodium Chloride 0.9% 20 ML IVPUSH ONE ×2 (17:58→18:31)
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
[2020-06-22 18:33] LABS: BLOOD UREA NITROGEN,BUN 12 mg/dL (7.0-18.0); CARBON DIOXIDE,CO2 24.5 mmol/L (21.0-32.0); CHLORIDE,CL 104 mmol/L (98-107); GLUCOSE RANDOM 96 mg/dL (74-106); LIPASE 67 U/L (73-393); POTASSIUM,K 4.3 mmol/L (3.5-5.1); SODIUM,NA 142 mmol/L (136-145)
--- NOTE | 2020-06-22 18:33 | PCM.SN.2 ---
- Free Text/Narrative Note: EKG sinus rhythm heart rate 78 [place] 81 [place] 153 QT 460 T wave inversion in V1 and V2 no prior for comparison impression no obvious injury
--- NOTE | 2020-06-22 19:04 | CR ---
Indication: Hematemesis. Technique: Single frontal view of the chest. Comparison: August 08, 2019. Findings: The heart is normal size. The lungs are clear. No infiltrate, pleural effusion, or pneumothorax is identified. Impression: No acute cardiopulmonary process. Dictated by Ava Leigh MD @ Jun 22 2020 7:02PM Signed by Dr. Ava Leigh @ Jun 22 2020 7:03PM
[2020-06-22 20:40] VITALS: BP 106/69; PULSE 81
== END 2020-06-22 20:40 | disposition home or self-care (01) ==
LOC: MW.ED 17:10
DX: R11.2 Nausea with vomiting, unspecified (principal); F41.9 Anxiety disorder, unspecified; F17.210 Nicotine dependence, cigarettes, uncomplicated; Z88.0 Allergy status to penicillin; Z88.2 Allergy status to sulfonamides; Z88.8 Allergy status to other drugs, medicaments and biological substances; Z79.899 Other long term (current) drug therapy
CPT/HCPCS: 36415; 71045; 80053; 81003; 83690; 84703; 85014; 85018; 85025; 93005; 96374; 96375; 96376; 99284; C9113; J2405; J7030; 93010

== ENCOUNTER 2020-11-16 20:00 | Emergency (ER) | payer OTHER ==
--- NOTE | 2020-11-16 20:14 | EDM.PDOC ---
ED HPI GENERAL MEDICAL PROBLEM - General Stated Complaint: BLADDER ISSUE Time Seen by Provider: 11/16/20 20:12 Source of Information: Reports: Patient History Limitations: Reports: No Limitations - History of Present Illness INITIAL COMMENTS - FREE TEXT/NARRATIVE: HISTORY AND PHYSICAL: History of present illness: Patient is a 25-year-old female who presents to the emergency room with complaints of dysuria and frequency over the past few days. She is concerned she has a urinary tract infection. No concern for or STIs. Patient denies any fever, chills, headache, change in vision, syncope or near syncope. Denies any chest pain, back pain, shortness of breath or cough. Denies any abdominal pain, nausea, vomiting, diarrhea, or constipation. Has not noted any blood in urine or stool. Patient has been eating and drinking appropriately. Review of systems: As per history of present illness and below otherwise all systems reviewed and negative. Past medical history: As per history of present illness and as reviewed below otherwise noncontributory. Surgical history: As per history of present illness and as reviewed below otherwise noncontributory. Social history: See social history for further information Family history: As per history of present illness and as reviewed below otherwise noncontributory. Physical exam: General: Well developed and well nourished. Alert and orientated x 3. Nontoxic in appearance and in no acute distress. Vital signs are stable and have been reviewed by me. Nursing notes were reviewed. HEENT: Atraumatic, normocephalic, pupils equal and reactive bilaterally, negative for conjunctival pallor or scleral icterus, mucous membranes moist, trachea midline. No drooling or trismus noted. No meningeal signs. No hot potato voice noted. Lungs: Clear to auscultation bilaterally. Normal work of breathing, no accessory muscles used. Heart: S1S2, regular rate and rhythm Abdomen: Soft, nondistended, nontender. Normoactive bowel sounds. Negative for masses or costovertebral tenderness. Skin: Intact, warm, dry. No lesions or rashes noted. Hematologic: No petechiae or purpra. Mucosa appropriate color and normal nail bed color and refill. Extremities: Atraumatic, moves all extremities per self without difficulty or deficits, negative for cords or calf pain. Neurovascular unremarkable. Neuro: Awake, alert, oriented. Cranial nerves II through XII unremarkable. Cerebellum unremarkable. Motor and sensory unremarkable throughout. Exam nonfocal. Psychiatric: Mood and affect are appropriate. Normal thought process. Answering questions appropriately. Notes: *This patient was seen and evaluated during the 2019 SARS-CoV-2 novel coronavirus pandemic period. Community viral transmission is ongoing at time of this encounter and the emergency department is operating under pandemic response procedures. I have talked with the patient about today's findings, in addition to providing specific details for plan of care. Reassessment at the time of disposition demonstrates that the patient is in no acute distress. The patient is stable for discharge, counseling was provided and we discussed in great detail signs and symptoms that would prompt them to return to the Emergency Department. Medication, follow up and supportive care measures were reviewed and discussed. Voices understanding and is agreeable to plan of care. Denies any further questions or concerns at this time. Diagnostics: UA, HCGU Therapeutics: Cipro, Pyridium Prescription: Cipro, Pyridium Impression: UTI Plan: 1. You were evaluated today on an emergent basis. You have a bladder infection. Please take the medication as directed. 2. You can alternate Tylenol and ibuprofen as needed for pain and fever management. 3. We encourage you to follow up with your primary care provider and/or recommended specialist in the next few days for re-evaluation and further care/management. 4. If your symptoms should worsen, new symptoms develop or any of the signs and symptoms we discussed should arise please return to the emergency room or call 911 (if needed). Definitive disposition and diagnosis as appropriate pending reevaluation and review of above. - Related Data Allergies Allergy/AdvReac Type Severity Reaction Status Date / Time Penicillins Allergy Hives Verified 11/16/20 20:18 Sulfa (Sulfonamide Allergy unsure Verified 11/16/20 20:18 Antibiotics) steroids Allergy Hives Uncoded 11/16/20 20:18 Home Meds: Home Meds FLUoxetine [PROzac] 10 mg PO DAILY 01/02/18 [History] Ethinyl Estradiol/Drospirenone [Ocella 3 MG-0.03 MG] 1 tab PO DAILY 04/01/18 [History] Ciprofloxacin HCl [Cipro] 500 mg PO BID 5 Days #10 tablet 11/16/20 [Rx] Phenazopyridine HCl [Pyridium] 200 mg PO TID 2 Days #12 tablet 11/16/20 [Rx] Past Medical History - Past Health History Medical/Surgical History: Denies Medical/Surgical History Other Cardiovascular History: palpitations Respiratory History: Reports: None Gastrointestinal History: Reports: None Genitourinary History: Reports: None [employer] History: Reports: None Musculoskeletal History: Reports: Other (See Below) Other Musculoskeletal History: R acl,lcl,meniscus injury Neurological History: Reports: None Psychiatric History: Reports: Anxiety Endocrine/Metabolic History: Reports: None Hematologic History: Reports: None Immunologic History: Reports: None Oncologic (Cancer) History: Reports: None Dermatologic History: Reports: None - Infectious Disease History Infectious Disease History: Reports: None - Past Surgical History Head Surgeries/Procedures: Reports: None HEENT Surgical History: Reports: Oral Surgery, Tonsillectomy Social & Family History - Family History Family Medical History: No Pertinent Family History - Caffeine Use Caffeine Use: Reports: None Caffeine Use Comment: 1cup/day ED ROS GENERAL - Review of Systems Review Of Systems: Comprehensive ROS is negative, except as noted in HPI. ED EXAM, RENAL/ - Physical Exam Exam: See Below (See dictation) Course - Vital Signs Last Recorded V/S: Last Vital Signs Temp 97.4 F 11/16/20 20:19 Pulse 100 11/16/20 20:19 Resp 16 11/16/20 20:19 BP 117/80 11/16/20 20:19 Pulse Ox 97 11/16/20 20:19 - Orders/Labs/Meds Orders: Active Orders 24 hr Category Date Time Status CULTURE URINE [RM] Stat Lab 11/16/20 20:06 Received Labs: Laboratory Tests 11/16/20 11/16/20 Range/Units 20:06 20:06 Urine Color YELLOW Urine Appearance HAZY Urine pH 5.0 (5.0-8.0) Ur Specific P[place]ree 1.025 (1.001-1.035) Urine Protein NEGATIVE (NEGATIVE) mg/dL Urine Glucose (UA) NEGATIVE (NEGATIVE) mg/dL Urine Ketones NEGATIVE (NEGATIVE) mg/dL Urine Occult Blood MODERATE H (NEGATIVE) Urine Nitrite NEGATIVE (NEGATIVE) Urine Bilirubin NEGATIVE (NEGATIVE) Urine Urobilinogen 0.2 (<2.0) EU/dL Ur Leukocyte Esterase SMALL H (NEGATIVE) Urine RBC 0-3 (0-2/HPF) Urine WBC 5-10 (0-5/HPF) Ur Epithelial Cells RARE (NONE-FEW) Urine Bacteria 1+ H (NEGATIVE) Urine Mucus LIGHT (NONE-MOD) Urine HCG, Qual NEGATIVE (NEGATIVE) Meds: Medications Discontinued Medications Generic Name Dose Route Start Last Admin Trade Name Robles PRN Reason Stop Dose Admin Ciprofloxacin 500 mg 11/16/20 20:19 11/16/20 20:29 Ciprofloxacin 500 Mg Tab PO 11/16/20 20:20 500 mg ONETIME ONE Administration Phenazopyridine HCl 200 mg 11/16/20 20:19 11/16/20 20:29 Phenazopyridine 200 Mg Tab PO 11/16/20 20:20 200 mg ONETIME ONE Administration Departure - Departure Time of Disposition: 20:34 Disposition: Home, Self-Care 01 Clinical Impression: UTI, Urinary tract infectious disease - Discharge Information Prescriptions: Ciprofloxacin HCl [Cipro] 500 mg PO BID 5 Days #10 tablet Phenazopyridine HCl [Pyridium] 200 mg PO TID 2 Days #12 tablet Instructions: Urinary Tract Infection, Adult, [id number] Referrals: Ese Minaya [Primary Care Provider] - Additional Instructions: The following information is given to patients seen in the emergency department who are being discharged to home. This information is to outline your options for follow-up care. We provide all patients seen in our emergency department with a follow-up referral. The need for follow-up, as well as the timing and circumstances, are variable depending upon the specifics of your emergency department visit. If you don't have a primary care physician on staff, we will provide you with a referral. We always advise you to contact your personal physician following an emergency department visit to inform them of the circumstance of the visit and for follow-up with them and/or the need for any referrals to a consulting specialist. The emergency department will also refer you to a specialist when appropriate. This referral assures that you have the opportunity for follow-up care with a specialist. All of these measure are taken in an effort to provide you with optimal care, which includes your follow-up. Under all circumstances we always encourage you to contact your private physician who remains a resource for coordinating your care. When calling for follow-up care, please make the office aware that this follow-up is from your recent emergency room visit. If for any reason you are refused follow-up, please contact the [facility] at and asked to speak to the emergency department charge nurse. [facility] [address] [place] [address] [facility] [address] [place] [address] Thank you for choosing the [facility] emergency department in [place] for your medical needs today. It was a pleasure caring for you. Today you were seen in the emergency department for UTI. 1. You were evaluated today on an emergent basis. You have a bladder infection. Please take the medication as directed. 2. You can alternate Tylenol and ibuprofen as needed for pain and fever management. 3. We encourage you to follow up with your primary care provider and/or recommended specialist in the next few days for re-evaluation and further care/management. 4. If your symptoms should worsen, new symptoms develop or any of the signs and symptoms we discussed should arise please return to the emergency room or call 911 (if needed). Sepsis Event Note (ED) - Focused Exam Vital Signs: Vital Signs Temp Pulse Resp BP Pulse Ox 11/16/20 20:19 97.4 F 100 16 117/80 97 - My Orders Last 24 Hours: My Active Orders 11/16/20 20:06 CULTURE URINE [RM] Stat - Assessment/Plan Last 24 Hours: My Active Orders 11/16/20 20:06 CULTURE URINE [RM] Stat
[2020-11-16] MEDS ORDERED: Ciprofloxacin 500 MG Tab PO ONE (20:19)
[2020-11-16] MEDS ORDERED: Phenazopyridine 200 MG Tab PO ONE (20:19)
[2020-11-16 20:20] VITALS: BP 117/80; PULSE 100
== END 2020-11-16 20:40 | disposition home or self-care (01) ==
LOC: MW.ED 20:00
DX: N39.0 Urinary tract infection, site not specified (principal); Z79.899 Other long term (current) drug therapy; Z88.0 Allergy status to penicillin; Z88.2 Allergy status to sulfonamides; Z88.8 Allergy status to other drugs, medicaments and biological substances
CPT/HCPCS: 81001; 81025; 87086; 87088; 87186; 99283; A9270

== ENCOUNTER 2021-05-03 16:15 | Emergency (ER) | payer OTHER ==
[2021-05-03] MEDS ORDERED: Phenazopyridine 200 MG Tab PO ONE (16:37)
[2021-05-03] MEDS ORDERED: Sodium Chloride 0.9% 10 ML Syringe FLUSH PRN (16:37)
[2021-05-03] MEDS ORDERED: Sodium Chloride 0.9% 2.5 ML Syringe FLUSH PRN (16:37)
--- NOTE | 2021-05-03 16:42 | EDM.PDOC ---
ED HPI GENERAL MEDICAL PROBLEM - General Stated Complaint: Hematuria Time Seen by Provider: 05/03/21 16:16 Source of Information: Reports: Patient History Limitations: Reports: No Limitations - History of Present Illness INITIAL COMMENTS - FREE TEXT/NARRATIVE: HISTORY AND PHYSICAL: History of present illness: Patient is a 25-year-old female who presents emergency room today with concern of possible urinary tract infection. Patient states over the past 2 to 3 days, she has had some burning with urination and urinary frequency which she thought was a start of urinary tract infection. Patient states that she has had multiple urinary tract infections in the past and states that initially her symptoms started a similar to this but today is the first time she has noticed blood in her urine. Patient states that starting today, when she was urinating she began to pass blood and was concerned about this. Patient states that she continues to have the increased urinary frequency and burning with urination associated with the blood. Patient states that she is not bleeding vaginally. Patient states that she did stop her control orally 2 weeks ago and is trying to get . Patient denies fever, chills, chest pain, shortness of breath, or cough. Denies headache, neck stiff ness, change in vision, syncope, or near syncope. Denies nausea, vomiting, abdominal pain, diarrhea, constipation. Has not noted any blood in stool. Patient has been eating and drinking appropriately. Review of systems: As per history of present illness and below otherwise all systems reviewed and negative. Past medical history: As per history of present illness and as reviewed below otherwise noncontributory. Surgical history: As per history of present illness and as reviewed below otherwise non contributory. Social history: See social history for further information Family history: As per history of present illness and as reviewed below otherwise noncontributory. Physical exam: General: Patient is alert, oriented, and in no acute distress. Patient sitting comfortably on exam table. Vitals stable and reviewed by me. HEENT: Atraumatic, normocephalic, pupils equal and reactive bilaterally, negative for conjunctival pallor or scleral icterus, mucous membranes moist, throat clear, neck supple, nontender, trachea midline. No drooling or trismus noted. No meningeal signs. No hot potato voice noted. Lungs: Clear to auscultation, breath sounds equal bilaterally, chest nontender. Heart: S1S2, regular rate and rhythm without overt murmur Abdomen: Soft, nondistended, nontender. Negative for masses or hepatosplenomegaly. Negative for costovertebral tenderness. Pelvis: Stable nontender. Genitourinary: Deferred. Rectal: Deferred. Skin: Intact, warm, dry. No lesions or rashes noted. Extremities: Atraumatic, negative for cords or calf pain. Neurovascular unremarkable. Neuro: Awake, alert, oriented. Cranial nerves II through XII unremarkable. Cerebellum unremarkable. Motor and sensory unremarkable throughout. Exam nonfocal. Medical Decision Making: CBC shows mild leukocytosis with WBC 11.06, otherwise mild derangements of lab work today unremarkable. hCG is negative. Urinalysis does show 100 protein positive leukocyte esterase greater than 100 red blood cells, 20 white blood cells and 1+ bacteria suggestive of acute cystitis. Upon reevaluation of patient, she remains vitally stable and comfortable throughout stay in ED. I did discuss with patient that if treating her urinary tract infection does not resolve the blood in her urine, to follow-up with her primary care provider for further evaluation. Strict return precautions thoroughly discussed with patient. Discussed importance for follow-up with a primary care provider. Voices understanding and is agreeable to plan of care. Denies any further questions or concerns at this time. Diagnostics: CBC, CMP, UA, Serum hcg, Lipase, urine culture Therapeutics: Pyridium Prescription: Ke[facility] silvermanium Impression: Urinary tract infection Plan: 1. Take medication as prescribed. You can alternate ibuprofen and Tylenol as directed for pain and discomfort. 2. Follow-up with a primary care provider as discussed. Return to the ED as needed and as discussed. If the blood in your urine does not resolve with treatment of the infection, discussed this with your primary care provider for further diagnostic completion as discussed. Definitive disposition and diagnosis as appropriate pending reevaluation and review of above. painful urination Pain Score (Numeric/FACES): 5 - Related Data Allergies Allergy/AdvReac Type Severity Reaction Status Date / Time Penicillins Allergy Hives Verified 05/03/21 16:39 Sulfa (Sulfonamide Allergy unsure Verified 05/03/21 16:39 Antibiotics) steroids Allergy Hives Uncoded 05/03/21 16:39 Home Meds: Home Meds FLUoxetine [PROzac] 10 mg PO DAILY 01/02/18 [History] Ethinyl Estradiol/Drospirenone [[place]cell[place] 3 MG-0.03 MG] 1 tab PO DAILY 04/01/18 [History] Ciprofloxacin HCl [Cipro] 500 mg PO BID 5 Days #10 tablet 11/16/20 [Rx] Phenazopyridine HCl [Pyridium] 200 mg PO TID 2 Days #12 tablet 11/16/20 [Rx] Past Medical History - Past Health History Medical/Surgical History: Denies Medical/Surgical History Other Cardiovascular History: palpitations Respiratory History: Reports: None Gastrointestinal History: Reports: None Genitourinary History: Reports: None 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 Musculoskeletal History: Reports: Other (See Below) Other Musculoskeletal History: R acl,lcl,meniscus injury Neurological History: Reports: None Psychiatric History: Reports: Anxiety Endocrine/Metabolic History: Reports: None Hematologic History: Reports: None Immunologic History: Reports: None Oncologic (Cancer) History: Reports: None Dermatologic History: Reports: None - Infectious Disease History Infectious Disease History: Reports: None - Past Surgical History Head Surgeries/Procedures: Reports: None HEENT Surgical History: Reports: Oral Surgery, Tonsillectomy Social & Family History - Family History Family Medical History: No Pertinent Family History - Caffeine Use Caffeine Use: Reports: None Caffeine Use Comment: 1cup/day ED ROS GENERAL - Review of Systems Review Of Systems: Comprehensive ROS is negative, except as noted in HPI. ED EXAM, GENERAL - Physical Exam Exam: See Below (see dictation) Course - Vital Signs Last Recorded V/S: Last Vital Signs Temp 96.8 F L 05/03/21 16:35 Pulse 84 05/03/21 16:35 Resp 16 05/03/21 16:35 BP 123/77 05/03/21 16:35 Pulse Ox 97 05/03/21 16:35 - Orders/Labs/Meds Orders: Active Orders 24 hr Category Date Time Status Bladder Scan [RC] ASDIRECTED Care 05/03/21 16:37 Active CULTURE URINE [MREF] Stat Lab 05/03/21 16:40 Received Sodium Chloride 0.9% [Saline Flush] Med 05/03/21 16:37 Active 10 ml FLUSH ASDIRECTED PRN Sodium Chloride 0.9% [Saline Flush] Med 05/03/21 16:37 Active 2.5 ml FLUSH ASDIRECTED PRN Saline Lock Insert [OM.PC] Stat Oth 05/03/21 16:37 Ordered Medication Orders Sodium Chloride (Sodium Chloride 0.9% 10 Ml Syringe) 10 ml FLUSH ASDIRECTED PRN PRN Reason: Keep Vein Open Last Admin: 05/03/21 17:18 Dose: 10 ml Documented by: REMY Sodium Chloride (Sodium Chloride 0.9% 2.5 Ml Syringe) 2.5 ml FLUSH ASDIRECTED PRN PRN Reason: Keep Vein Open Last Admin: 05/03/21 17:18 Dose: 2.5 ml Documented by: REMY Labs: Laboratory Tests 05/03/21 05/03/21 05/03/21 Range/Units 16:40 17:08 17:08 WBC 11.06 H (4.0-11.0) K/uL RBC 4.71 (4.30-5.90) M/uL Hgb 14.3 (12.0-16.0) g/dL Hct 41.8 (36.0-46.0) % MCV 88.7 (80.0-98.0) fL MCH 30.4 (27.0-32.0) pg MCHC 34.2 (31.0-37.0) g/dL RDW Std Deviation 41.7 (28.0-62.0) fl RDW Coeff of Alexis 13 (11.0-15.0) % Plt Count 250 (150-400) K/uL MPV 9.10 (7.40-12.00) fL Neut % (Auto) 66.7 (48.0-80.0) % Lymph % (Auto) 24.6 (16.0-40.0) % [place] % (Auto) 6.7 (0.0-15.0) % Eos % (Auto) 1.5 (0.0-7.0) % Baso % (Auto) 0.5 (0.0-1.5) % Neut # (Auto) 7.4 H (1.4-5.7) K/uL Lymph # (Auto) 2.7 H (0.6-2.4) K/uL [place] # (Auto) 0.7 (0.0-0.8) K/uL Eos # (Auto) 0.2 (0.0-0.7) K/uL Baso # (Auto) 0.1 (0.0-0.1) K/uL Nucleated RBC % 0.0 /100WBC Nucleated RBCs # 0 K/uL Sodium 136 (136-145) mmol/L Potassium 3.9 (3.5-5.1) mmol/L Chloride 100 (98-107) mmol/L Carbon Dioxide 29.5 (21.0-32.0) mmol/L BUN 14 (7.0-18.0) mg/dL Creatinine 0.8 (0.6-1.0) mg/dL Est Cr Clr Drug Dosing 75.87 mL/min Estimated GFR (MDRD) > 60.0 ml/min Glucose 101 (74-106) mg/dL Calcium 8.5 (8.5-10.1) mg/dL Total Bilirubin 0.3 (0.2-1.0) mg/dL AST 21 (15-37) IU/L ALT 40 (14-63) IU/L Alkaline Phosphatase 64 (46-116) U/L Total Protein 7.3 (6.4-8.2) g/dL Albumin 3.5 (3.4-5.0) g/dL Globulin 3.8 (2.6-4.0) g/dL Albumin/Globulin Ratio 0.9 (0.9-1.6) Lipase 98 (73-393) U/L HCG, Qual (NEG) Urine Color RED Urine Appearance CLOUDY Urine pH 6.0 (5.0-8.0) Ur Specific [place] >= 1.030 (1.001-1.035) Urine Protein 100 H (NEGATIVE) mg/dL Urine Glucose (UA) NEGATIVE (NEGATIVE) mg/dL Urine Ketones TRACE H (NEGATIVE) mg/dL Urine Occult Blood LARGE H (NEGATIVE) Urine Nitrite NEGATIVE (NEGATIVE) Urine Bilirubin NEGATIVE (NEGATIVE) Urine Urobilinogen 0.2 (<2.0) EU/dL Ur Leukocyte Esterase SMALL H (NEGATIVE) Urine RBC >100 H (0-2/HPF) Urine WBC 10-20 (0-5/HPF) Ur Epithelial Cells RARE (NONE-FEW) Urine Bacteria 1+ H (NEGATIVE) 05/03/21 Range/Units 17:08 WBC (4.0-11.0) K/uL RBC (4.30-5.90) M/uL Hgb (12.0-16.0) g/dL Hct (36.0-46.0) % MCV (80.0-98.0) fL MCH (27.0-32.0) pg MCHC (31.0-37.0) g/dL RDW Std Deviation (28.0-62.0) fl RDW Coeff of Alexis (11.0-15.0) % Plt Count (150-400) K/uL MPV (7.40-12.00) fL Neut % (Auto) (48.0-80.0) % Lymph % (Auto) (16.0-40.0) % [place] % (Auto) (0.0-15.0) % Eos % (Auto) (0.0-7.0) % Baso % (Auto) (0.0-1.5) % Neut # (Auto) (1.4-5.7) K/uL Lymph # (Auto) (0.6-2.4) K/uL [place] # (Auto) (0.0-0.8) K/uL Eos # (Auto) (0.0-0.7) K/uL Baso # (Auto) (0.0-0.1) K/uL Nucleated RBC % /100WBC Nucleated RBCs # K/uL Sodium (136-145) mmol/L Potassium (3.5-5.1) mmol/L Chloride (98-107) mmol/L Carbon Dioxide (21.0-32.0) mmol/L BUN (7.0-18.0) mg/dL Creatinine (0.6-1.0) mg/dL Est Cr Clr Drug Dosing mL/min Estimated GFR (MDRD) ml/min Glucose (74-106) mg/dL Calcium (8.5-10.1) mg/dL Total Bilirubin (0.2-1.0) mg/dL AST (15-37) IU/L ALT (14-63) IU/L Alkaline Phosphatase (46-116) U/L Total Protein (6.4-8.2) g/dL Albumin (3.4-5.0) g/dL Globulin (2.6-4.0) g/dL Albumin/Globulin Ratio (0.9-1.6) Lipase (73-393) U/L HCG, Qual NEGATIVE (NEG) Urine Color Urine Appearance Urine pH (5.0-8.0) Ur Specific [place] (1.001-1.035) Urine Protein (NEGATIVE) mg/dL Urine Glucose (UA) (NEGATIVE) mg/dL Urine Ketones (NEGATIVE) mg/dL Urine Occult Blood (NEGATIVE) Urine Nitrite (NEGATIVE) Urine Bilirubin (NEGATIVE) Urine Urobilinogen (<2.0) EU/dL Ur Leukocyte Esterase (NEGATIVE) Urine RBC (0-2/HPF) Urine WBC (0-5/HPF) Ur Epithelial Cells (NONE-FEW) Urine Bacteria (NEGATIVE) Meds: Medications Generic Name Dose Route Start Last Admin Trade Name Freq PRN Reason Stop Dose Admin Sodium Chloride 10 ml 05/03/21 16:37 05/03/21 17:18 Sodium Chloride 0.9% 10 Ml Syringe FLUSH 10 ml ASDIRECTED PRN Administration Keep Vein Open Sodium Chloride 2.5 ml 05/03/21 16:37 05/03/21 17:18 Sodium Chloride 0.9% 2.5 Ml Syringe FLUSH 2.5 ml ASDIRECTED PRN Administration Keep Vein Open Discontinued Medications Generic Name Dose Route Start Last Admin Trade Name Freq PRN Reason Stop Dose Admin Phenazopyridine HCl 200 mg 05/03/21 16:37 05/03/21 17:17 Phenazopyridine 200 Mg Tab PO 05/03/21 16:38 200 mg ONETIME ONE Administration Departure - Departure Time of Disposition: 18:04 Disposition: Home, Self-Care 01 Clinical Impression: Urinary tract infection - Discharge Information Referrals: Adriana Reis PA [Primary Care Provider] - Additional Instructions: The following information is given to patients seen in the emergency department who are being discharged to home. This information is to outline your options for follow-up care. We provide all patients seen in our emergency department with a follow-up referral. The need for follow-up, as well as the timing and circumstances, are variable depending upon the specifics of your emergency department visit. If you don't have a primary care physician on staff, we will provide you with a referral. We always advise you to contact your personal physician following an emergency department visit to inform them of the circumstance of the visit and for follow-up with them and/or the need for any referrals to a consulting specialist. The emergency department will also refer you to a specialist when appropriate. This referral assures that you have the opportunity for follow-up care with a specialist. All of these measure are taken in an effort to provide you with optimal care, which includes your follow-up. Under all circumstances we always encourage you to contact your private physician who remains a resource for coordinating your care. When calling for follow-up care, please make the office aware that this follow-up is from your recent emergency room visit. If for any reason you are refused follow-up, please contact the [facility] Emergency Department at and asked to speak to the emergency department charge nurse. [facility] [address] [place] [id number] [facility] [address] [place] [id number] 1. Take medication as prescribed. You can alternate ibuprofen and Tylenol as directed for pain and discomfort. 2. Follow-up with a primary care provider as discussed. Return to the ED as needed and as discussed. If the blood in your urine does not resolve with treatment of the infection, discussed this with your primary care provider for further diagnostic completion as discussed. Sepsis Event Note (ED) - Focused Exam Vital Signs: Vital Signs Temp Pulse Resp BP Pulse Ox 05/03/21 16:35 96.8 F L 84 16 123/77 97 - My Orders Last 24 Hours: My Active Orders 05/03/21 16:37 Bladder Scan [RC] ASDIRECTED Sodium Chloride 0.9% [Saline Flush] 10 ml FLUSH ASDIRECTED PRN Sodium Chloride 0.9% [Saline Flush] 2.5 ml FLUSH ASDIRECTED PRN Saline Lock Insert [OM.PC] Stat 05/03/21 16:40 CULTURE URINE [MREF] Stat - Assessment/Plan Last 24 Hours: My Active Orders 05/03/21 16:37 Bladder Scan [RC] ASDIRECTED Sodium Chloride 0.9% [Saline Flush] 10 ml FLUSH ASDIRECTED PRN Sodium Chloride 0.9% [Saline Flush] 2.5 ml FLUSH ASDIRECTED PRN Saline Lock Insert [OM.PC] Stat 05/03/21 16:40 CULTURE URINE [MREF] Stat
[2021-05-03 17:57] LABS: BLOOD UREA NITROGEN,BUN 14 mg/dL (7.0-18.0); CARBON DIOXIDE,CO2 29.5 mmol/L (21.0-32.0); CHLORIDE,CL 100 mmol/L (98-107); GLUCOSE RANDOM 101 mg/dL (74-106); LIPASE 98 U/L (73-393); POTASSIUM,K 3.9 mmol/L (3.5-5.1); SODIUM,NA 136 mmol/L (136-145)
[2021-05-03 18:25] VITALS: BP 102/72; PULSE 74
== END 2021-05-03 18:25 | disposition home or self-care (01) ==
LOC: MW.ED 16:15
DX: N39.0 Urinary tract infection, site not specified (principal); R31.9 Hematuria, unspecified; Z88.0 Allergy status to penicillin; Z88.2 Allergy status to sulfonamides; Z88.8 Allergy status to other drugs, medicaments and biological substances
CPT/HCPCS: 36415; 80053; 81001; 83690; 84703; 85025; 87086; 99283; A9270

== ENCOUNTER 2021-08-12 11:01 | Emergency (ER) | payer OTHER ==
[2021-08-12] MEDS ORDERED: Acetaminophen 500 MG Tab PO ONE ×2 (12:25→12:38)
[2021-08-12 14:53] VITALS: BP 101/56; PULSE 85
== END 2021-08-12 14:56 | disposition home or self-care (01) ==
LOC: MW.ED 11:01
DX: T78.2XXA Anaphylactic shock, unspecified, initial encounter (principal); Z86.16 Personal history of COVID-19; Z88.0 Allergy status to penicillin; Z88.2 Allergy status to sulfonamides; Z88.8 Allergy status to other drugs, medicaments and biological substances; Z91.041 Radiographic dye allergy status
CPT/HCPCS: 99285; A9270

== ENCOUNTER 2021-09-12 13:32 | Emergency (ER) | payer OTHER ==
[2021-09-12] MEDS ORDERED: Sodium Chloride 0.9% 1,000 ML IV ONE (13:47)
[2021-09-12 14:42] LABS: BLOOD UREA NITROGEN,BUN 10 mg/dL (7.0-18.0); CHLORIDE,CL 101 mmol/L (98-107); ESTIMATED GFR > 60.0 ml/min; GLUCOSE RANDOM 136 mg/dL (74-106); POTASSIUM,K 3.6 mmol/L (3.5-5.1); SODIUM,NA 139 mmol/L (136-145)
[2021-09-12 15:17] VITALS: PULSE 71
[2021-09-12 15:25] VITALS: BP 109/75
== END 2021-09-12 15:25 | disposition home or self-care (01) ==
LOC: MW.ED 13:32
DX: R00.2 Palpitations (principal); Z88.0 Allergy status to penicillin; Z88.2 Allergy status to sulfonamides; Z91.041 Radiographic dye allergy status; Z88.8 Allergy status to other drugs, medicaments and biological substances; Z86.16 Personal history of COVID-19
CPT/HCPCS: 36415; 71045; 71045-26; 80053; 81001; 81025; 83735; 84439; 84443; 84484; 85025; 85379; 93005; 93010; 99284; 99285-25; J7030

== ENCOUNTER 2022-07-12 05:26 | Inpatient (IN) | payer OTHER ==
[2022-07-12] MEDS ORDERED: Water For Irrigation,Sterile 1,000 ML Container IRR PRN (06:03)
[2022-07-12] MEDS ORDERED: Methylergonovine 0.2 MG/1 ML Amp IM PRN (06:03)
[2022-07-12] MEDS ORDERED: Sodium Chloride 0.9% 10 ML Syringe FLUSH PRN (06:03)
[2022-07-12] MEDS ORDERED: Carboprost Tromethamine 250 MCG/1 ML Amp IM PRN (06:03)
[2022-07-12] MEDS ORDERED: Sodium Chloride 0.9% 2.5 ML Syringe FLUSH PRN (06:03)
[2022-07-12] MEDS ORDERED: Sodium Chloride 0.9% 20 ML SDV IV PRN (06:03)
[2022-07-12] MEDS ORDERED: Tranexamic Acid 1,000 MG in Sodium Chloride 0.9% 100 ML IV PRN (06:03)
[2022-07-12] MEDS ORDERED: Acetaminophen 500 MG Tab PO PRN (06:03)
[2022-07-12] MEDS ORDERED: Lidocaine 1% 50 ML MDV INJECT PRN (06:03)
[2022-07-12] MEDS ORDERED: Misoprostol 200 MCG Tab PO PRN (06:03)
[2022-07-12] MEDS ORDERED: Ondansetron 4 MG/2 ML SDV IVPUSH PRN (06:03)
[2022-07-12] MEDS ORDERED: Terbutaline 1 MG/ML SDV SUBCUT PRN (06:03)
[2022-07-12] MEDS ORDERED: Oxytocin/0.9 % Sodium Chloride 30 UNIT/500 ML BAG IV SCH ×2 (06:15)
[2022-07-12] MEDS ORDERED: Misoprostol 25 MCG (1/4 of 100 MCG) Tab VAG PRN (06:30)
[2022-07-12] MEDS ORDERED: Misoprostol 25 MCG (1/4 of 100 MCG) Tab PO PRN (06:30)
[2022-07-12] MEDS ORDERED: ePHEDrine 50 MG/ML SDV IVPUSH PRN ×2 (08:38)
[2022-07-12] MEDS ORDERED: Phenylephrine HCl In 0.9% NaCl 1 MG/10 ML Vial IVPUSH PRN (08:38)
[2022-07-12] MEDS ORDERED: Ropivacaine HCl/PF 400 MG in Premix Bag 1 BAG EPIDUR SCH (08:45)
[2022-07-12] MEDS: Lactated Ringers 1,000 ML IV SCH ×3 (09:54→20:37)
[2022-07-12] MEDS: Misoprostol 25 MCG (1/4 of 100 MCG) Tab VAG PRN ×2 (10:58→15:08)
[2022-07-12] MEDS: Misoprostol 25 MCG (1/4 of 100 MCG) Tab PO PRN ×2 (10:58→15:08)
[2022-07-12] MEDS: Nalbuphine HCl 10 MG/ 1ML Amp IVPUSH PRN ×2 (15:13→16:45)
[2022-07-12] MEDS ORDERED: Phenylephrine 1% 10 MG/ML SDV ONE (17:23)
[2022-07-12] MEDS ORDERED: Lidocaine 2% with EPINEPHrine 1:200,000 20 ML SDV ONE (17:24)
[2022-07-13] MEDS ORDERED: Witch Hazel Medicated Pads 40/Jar TOP PRN (02:09)
[2022-07-13] MEDS ORDERED: Ibuprofen 400 MG Tab PO PRN (02:09)
[2022-07-13] MEDS ORDERED: Lanolin 100% Cream 7 GM Tube TOP PRN (02:09)
[2022-07-13] MEDS ORDERED: oxyCODONE 5 MG Tab PO PRN (02:09)
[2022-07-13] MEDS ORDERED: Benzocaine/Menthol 20%-0.5% Spray 78 GM Cannister TOP PRN (02:09)
[2022-07-13] MEDS ORDERED: Docusate Sodium 100 MG Cap PO PRN (02:09)
[2022-07-13] MEDS ORDERED: Bisacodyl 10 MG Supp RECTAL PRN (02:09)
[2022-07-13] MEDS ORDERED: Acetaminophen 500 MG Tab PO PRN (02:09)
[2022-07-13] MEDS ORDERED: Ibuprofen 800 MG Tab PO PRN (02:09)
[2022-07-13] MEDS: Acetaminophen 500 MG Tab PO PRN ×2 (03:40→21:33)
[2022-07-13] MEDS: Phenylephrine HCl In 0.9% NaCl 1 MG/10 ML Vial IVPUSH SCH (20:37)
[2022-07-14] MEDS: Acetaminophen 500 MG Tab PO PRN (05:29)
[2022-07-14 20:03] VITALS: BP 125/90; PULSE 64
== END 2022-07-14 20:32 | disposition home or self-care (01) | DRG 807 ==
LOC: MW.OBCHECK 05:26 → MW.OB 05:27 → MW.OBCHECK 06:02 → MW.OB 06:03 → OBSVTOIN 07-13 01:16 → MW.OB 07-13 04:00
PROVIDERS: ADMIT Obstetrics & Gynecology; ATTEND Obstetrics & Gynecology
PROC: 10D07Z6 Extraction of Products of Conception, Vacuum, Via Natural or Artificial Opening (ICD-10-PCS; principal; 2022-07-13)
PROC: 10907ZC Drainage of Amniotic Fluid, Therapeutic from Products of Conception, Via Natural or Artificial Opening (ICD-10-PCS; 2022-07-13)
PROC: 3E033VJ Introduction of Other Hormone into Peripheral Vein, Percutaneous Approach (ICD-10-PCS; 2022-07-13)
PROC: 0HQ9XZZ Repair Perineum Skin, External Approach (ICD-10-PCS; 2022-07-13)
PROC: 3E0R3BZ Introduction of Anesthetic Agent into Spinal Canal, Percutaneous Approach (ICD-10-PCS; 2022-07-13)
PROC: 00HU33Z Insertion of Infusion Device into Spinal Canal, Percutaneous Approach (ICD-10-PCS; 2022-07-13)
DX: O48.0 Post-term pregnancy (principal); Z37.0 Single live birth; O99.344 Other mental disorders complicating childbirth; F41.9 Anxiety disorder, unspecified; Z20.822 Contact with and (suspected) exposure to COVID-19; Z3A.40 40 weeks gestation of pregnancy; O70.0 First degree perineal laceration during delivery; Z88.0 Allergy status to penicillin; Z88.2 Allergy status to sulfonamides; Z91.041 Radiographic dye allergy status; Z88.8 Allergy status to other drugs, medicaments and biological substances
CPT/HCPCS: 01967; 36415; 51702; 59025; 59409; 85014; 85018; 85027; 86592; 86850; 86900; 86901; A9270-GY; J2300; J2370; J2405; J2590; J7120; U0002

== ENCOUNTER 2022-12-18 11:06 | Emergency (ER) | payer OTHER ==
[2022-12-18 11:26] VITALS: BP 119/88; PULSE 88
[2022-12-18 14:56] LABS: HEPATITIS C AB# 0.12 INDEX (<0.8)
== END 2022-12-18 12:14 | disposition home or self-care (01) ==
LOC: MW.ED 11:06
DX: Z77.21 Contact with and (suspected) exposure to potentially hazardous body fluids (principal); Z86.16 Personal history of COVID-19; Z88.0 Allergy status to penicillin; Z88.2 Allergy status to sulfonamides; Z91.041 Radiographic dye allergy status; Z88.8 Allergy status to other drugs, medicaments and biological substances; Z79.899 Other long term (current) drug therapy
CPT/HCPCS: 36415; 86706; 86803; 87340; 87389; 99283

== ENCOUNTER 2024-06-01 15:03 | Inpatient (IN) | payer OTHER ==
[2024-06-01] MEDS ORDERED: Butorphanol 2 MG/ML SDV IVPUSH PRN (16:37)
[2024-06-01] MEDS ORDERED: Sodium Chloride 0.9% 20 ML SDV IV PRN (16:37)
[2024-06-01] MEDS ORDERED: Sodium Chloride 0.9% 10 ML Syringe FLUSH PRN (16:37)
[2024-06-01] MEDS ORDERED: Sodium Chloride 0.9% 2.5 ML Syringe FLUSH PRN (16:37)
[2024-06-01] MEDS ORDERED: Misoprostol 200 MCG Tab PO PRN (16:37)
[2024-06-01] MEDS ORDERED: Lidocaine 1% 50 ML MDV INJECT PRN (16:37)
[2024-06-01] MEDS ORDERED: Carboprost Tromethamine 250 MCG/1 mL Vial IM PRN (16:37)
[2024-06-01] MEDS ORDERED: Methylergonovine 0.2 MG/1 ML Amp IM PRN (16:37)
[2024-06-01] MEDS ORDERED: Terbutaline 1 MG/ML SDV SUBCUT PRN (16:37)
[2024-06-01] MEDS ORDERED: Oxytocin/0.9 % Sodium Chloride 30 UNIT/500 ML BAG IV SCH (16:45)
[2024-06-01] MEDS ORDERED: Phenylephrine HCl In 0.9% NaCl 1 MG/10 ML Syringe IVPUSH PRN (17:12)
[2024-06-01] MEDS ORDERED: ePHEDrine 50 MG/ML SDV IVPUSH PRN (17:12)
[2024-06-01] MEDS ORDERED: dexmedeTOMIDine HCl 200 MCG/2 ML SDV EPIDUR SCH (17:15)
[2024-06-01 17:23] LABS: HEMOGLOBIN 14.1 g/dL (12.0-16.0); MEAN CORPUSCULAR HEMOGLOBIN 29.4 pg (28.0-32.0); MEAN CORPUSCULAR HGB CONC 34.4 g/dL (32.0-36.0); MEAN CORPUSCULAR VOLUME 85.4 fL (83.0-99.0); PLATELET COUNT,PLT 182 K/uL (150-400); WHITE BLOOD CELL COUNT,WBC 9.33 K/uL (3.9-11.3)
[2024-06-01] MEDS: Lactated Ringers 1,000 ML IV SCH (19:46)
[2024-06-01] MEDS ORDERED: fentaNYL 100 MCG/2 ML SDV ONE (19:50)
[2024-06-01] MEDS: Ropivacaine HCl/PF 400 MG in Premix Bag 1 BAG EPIDUR SCH (19:51)
[2024-06-01] MEDS: Ondansetron 4 MG/2 ML SDV IVPUSH PRN (19:55)
[2024-06-02] MEDS: Water For Irrigation,Sterile 1,000 ML Container IRR PRN (00:10)
[2024-06-02] MEDS: Oxytocin/0.9 % Sodium Chloride 30 UNIT/500 ML BAG IV SCH (00:10)
[2024-06-02] MEDS ORDERED: diphenhydrAMINE 50 MG Cap PO PRN (00:33)
[2024-06-02] MEDS ORDERED: Ibuprofen 800 MG Tab PO PRN (00:33)
[2024-06-02] MEDS ORDERED: Simethicone 80 MG Tab.Chew PO PRN (00:33)
[2024-06-02] MEDS ORDERED: Sennosides 8.6 MG Tab PO PRN (00:33)
[2024-06-02] MEDS ORDERED: Oxytocin 10 Units/1 ML SDV IM PRN (00:33)
[2024-06-02 00:40] LABS: PH,UMBILICAL ARTERIAL 7.218 (7.18-7.38); PH,UMBILICAL VENOUS 7.302 (7.25-7.45)
[2024-06-02] MEDS: Witch Hazel Medicated Pads 40/Jar TOP PRN (00:50)
[2024-06-02] MEDS: Acetaminophen 500 MG Tab PO PRN (00:50)
[2024-06-02] MEDS: Benzocaine/Menthol 20%-0.5% Spray 78 GM Cannister TOP PRN (00:50)
[2024-06-02] MEDS: Docusate Sodium 100 MG Cap PO PRN (05:05)
[2024-06-02 06:29] LABS: BASOPHILS ABSOLUTE AUTO 0.04 K/uL (0.00-0.20); BASOPHILS PERCENT AUTO 0.3 % (0.0-1.0); EOSINOPHILS ABSOLUTE AUTO 0.04 K/uL (0.00-0.45); EOSINOPHILS PERCENT AUTO 0.3 % (0.0-6.0); HEMATOCRIT 42.4 % (37.0-47.0); IMMATURE GRAN ABSOLUTE AUTO 0.06 K/uL (0.00-0.05); IMMATURE GRAN PERCENT AUTO 0.4 % (0.0-0.4); LYMPHOCYTES ABSOLUTE AUTO 2.89 K/uL (1.00-4.80); LYMPHOCYTES PERCENT AUTO 18.8 % (24.0-44.0); MEAN CORPUSCULAR VOLUME 87.8 fL (83.0-99.0); MEAN PLATELET VOLUME 9.9 fL (9.4-12.3); MONOCYTES ABSOLUTE AUTO 1.34 K/uL (0.00-0.80); MONOCYTES PERCENT AUTO 8.7 % (0.0-8.0); NEUTROPHILS ABSOLUTE AUTO 11.01 K/uL (1.80-7.70); NEUTROPHILS PERCENT AUTO 71.5 % (41.0-71.0); PLATELET COUNT,PLT 162 K/uL (150-400); RED BLOOD CELL COUNT 4.83 M/uL (4.10-5.30); WHITE BLOOD CELL COUNT,WBC 15.38 K/uL (3.9-11.3)
[2024-06-02] MEDS: Lanolin 100% Cream 7 GM Tube TOP PRN (17:36)
[2024-06-03] MEDS: Sertraline 25 MG Tab PO SCH (11:42)
[2024-06-03 12:56] VITALS: BP 117/63; PULSE 91
== END 2024-06-03 13:15 | disposition home or self-care (01) | DRG 807 ==
LOC: MW.OBCHECK 15:03 → MW.OB 15:03 → MW.OBCHECK 16:36 → MW.OB 16:37 → OBSVTOIN 06-02 00:09 → MW.OB 06-02 02:54
PROVIDERS: ADMIT Obstetrics & Gynecology; ATTEND Obstetrics & Gynecology Obstetrics
PROC: 10E0XZZ Delivery of Products of Conception, External Approach (ICD-10-PCS; principal; 2024-06-02)
PROC: 0HQ9XZZ Repair Perineum Skin, External Approach (ICD-10-PCS; 2024-06-02)
PROC: 3E0R3BZ Introduction of Anesthetic Agent into Spinal Canal, Percutaneous Approach (ICD-10-PCS; 2024-06-02)
PROC: 00HU33Z Insertion of Infusion Device into Spinal Canal, Percutaneous Approach (ICD-10-PCS; 2024-06-02)
DX: O48.0 Post-term pregnancy (principal); Z37.0 Single live birth; O70.0 First degree perineal laceration during delivery; O99.344 Other mental disorders complicating childbirth; F32.A Depression, unspecified; O99.214 Obesity complicating childbirth; E66.01 Morbid (severe) obesity due to excess calories; Z3A.41 41 weeks gestation of pregnancy; Z91.041 Radiographic dye allergy status; Z88.2 Allergy status to sulfonamides; Z88.0 Allergy status to penicillin; Z86.16 Personal history of COVID-19; Z90.89 Acquired absence of other organs
CPT/HCPCS: 36415; 51702; 59025; 59409; 76815; 76815-26; 82803; 84112; 85025; 85027; 86592; 86850; 86900; 86901; A9270-GY; J2405; J2590; J2795; J3010; J3490; J7120

== ENCOUNTER 2024-08-25 15:33 | Emergency (ER) | payer OTHER ==
[2024-08-25] MEDS ORDERED: Sodium Chloride 0.9% 10 ML Syringe FLUSH PRN (15:55)
[2024-08-25] MEDS ORDERED: Sodium Chloride 0.9% 2.5 ML Syringe FLUSH PRN (15:55)
[2024-08-25 16:07] LABS: APPEARANCE,URINE CLEAR; BILIRUBIN,URINE NEGATIVE (NEGATIVE); COLOR,URINE YELLOW; GLUCOSE,URINE NEGATIVE (NEGATIVE); KETONES,URINE TRACE mg/dL (NEGATIVE); LEUKOCYTE ESTERASE,URINE NEGATIVE (NEGATIVE); NITRITE,URINE NEGATIVE (NEGATIVE); OCCULT BLOOD,URINE NEGATIVE (NEGATIVE); PH,URINE 5.5 (5.0-8.0); PROTEIN,URINE NEGATIVE (NEGATIVE); UROBILINOGEN,URINE 0.2 EU/dL (<2.0)
[2024-08-25 16:15] LABS: BASOPHILS ABSOLUTE AUTO 0.02 K/uL (0.00-0.20); BASOPHILS PERCENT AUTO 0.4 % (0.0-1.0); EOSINOPHILS ABSOLUTE AUTO 0.13 K/uL (0.00-0.45); EOSINOPHILS PERCENT AUTO 2.7 % (0.0-6.0); HEMATOCRIT 42.1 % (37.0-47.0); HEMOGLOBIN 14.5 g/dL (12.0-16.0); IMMATURE GRAN ABSOLUTE AUTO 0.02 K/uL (0.00-0.05); IMMATURE GRAN PERCENT AUTO 0.4 % (0.0-0.4); LYMPHOCYTES ABSOLUTE AUTO 2.47 K/uL (1.00-4.80); LYMPHOCYTES PERCENT AUTO 50.6 % (24.0-44.0); MEAN CORPUSCULAR HEMOGLOBIN 29.2 pg (28.0-32.0); MEAN CORPUSCULAR HGB CONC 34.4 g/dL (32.0-36.0); MEAN CORPUSCULAR VOLUME 84.7 fL (83.0-99.0); MEAN PLATELET VOLUME 9.1 fL (9.4-12.3); MONOCYTES PERCENT AUTO 12.3 % (0.0-8.0); NEUTROPHILS ABSOLUTE AUTO 1.64 K/uL (1.80-7.70); NEUTROPHILS PERCENT AUTO 33.6 % (41.0-71.0); PLATELET COUNT,PLT 174 K/uL (150-400); RED BLOOD CELL COUNT 4.97 M/uL (4.10-5.30); WHITE BLOOD CELL COUNT,WBC 4.88 K/uL (3.9-11.3)
[2024-08-25] MEDS: Morphine 4 MG/ML Syringe IVPUSH STA (16:25)
[2024-08-25] MEDS: Sodium Chloride 0.9% 1,000 ML IV STA (16:27)
[2024-08-25] MEDS: Ondansetron 4 MG/2 ML SDV IVPUSH STA (16:27)
[2024-08-25 16:57] LABS: A/G RATIO 1.1 (0.9-1.6); BILIRUBIN TOTAL 0.8 mg/dL (0.2-1.0); CALCIUM 8.9 mg/dL (8.5-10.1); CARBON DIOXIDE,CO2 22.3 mmol/L (21.0-32.0); CREATININE 0.9 mg/dL (0.6-1.0); EST CRCL DRUG DOSING (CG) 81.5 mL/min; POTASSIUM,K 3.6 mmol/L (3.5-5.1); PROTEIN TOTAL,TP 7.5 g/dL (6.4-8.2)
[2024-08-25 18:41] VITALS: BP 114/80; PULSE 78
== END 2024-08-25 17:40 | disposition home or self-care (01) ==
LOC: MW.ED 15:33
DX: R11.2 Nausea with vomiting, unspecified (principal); R19.7 Diarrhea, unspecified; E78.00 Pure hypercholesterolemia, unspecified; Z86.16 Personal history of COVID-19; Z75.8 Other problems related to medical facilities and other health care; Z88.0 Allergy status to penicillin; Z88.2 Allergy status to sulfonamides; Z91.041 Radiographic dye allergy status; Z79.899 Other long term (current) drug therapy
CPT/HCPCS: 36415; 80053; 81003; 83690; 84703; 85025; 96361; 96374; 99284; J2405; J7030

== ENCOUNTER 2025-06-04 13:07 | Observation (INO) | payer OTHER ==
[2025-06-04 13:44] LABS: BASOPHILS ABSOLUTE AUTO 0.02 K/uL (0.00-0.20); BASOPHILS PERCENT AUTO 0.3 % (0.0-1.0); EOSINOPHILS ABSOLUTE AUTO 0.01 K/uL (0.00-0.45); EOSINOPHILS PERCENT AUTO 0.1 % (0.0-6.0); IMMATURE GRAN ABSOLUTE AUTO 0.01 K/uL (0.00-0.05); IMMATURE GRAN PERCENT AUTO 0.1 % (0.0-0.4); LYMPHOCYTES ABSOLUTE AUTO 0.95 K/uL (1.00-4.80); LYMPHOCYTES PERCENT AUTO 12.7 % (24.0-44.0); MEAN PLATELET VOLUME 8.8 fL (9.4-12.3); MONOCYTES ABSOLUTE AUTO 0.66 K/uL (0.00-0.80); MONOCYTES PERCENT AUTO 8.8 % (0.0-8.0); NEUTROPHILS ABSOLUTE AUTO 5.83 K/uL (1.80-7.70); NEUTROPHILS PERCENT AUTO 78.0 % (41.0-71.0); NRBC ABSOLUTE 0.00 K/uL (0.00-0.02); NRBC PERCENT 0.0 /100WBC (0.0-0.2); PLATELET COUNT,PLT 149 K/uL (150-400); RED BLOOD CELL COUNT 4.38 M/uL (4.10-5.30); WHITE BLOOD CELL COUNT,WBC 7.48 K/uL (3.9-11.3)
[2025-06-04 14:07] LABS: A/G RATIO 0.9 (0.9-1.6); ALANINE AMINOTRANSFERASE,ALT 17.0 IU/L (14-63); ASPARTATE AMNIOTRANSFERASE,AST 13.0 IU/L (15-37); BILIRUBIN TOTAL 0.5 mg/dL (0.2-1.0); BLOOD UREA NITROGEN,BUN 8.0 mg/dL (7.0-18.0); CARBON DIOXIDE,CO2 26.4 mmol/L (21.0-32.0); CHLORIDE,CL 106.0 mmol/L (98-107); CREATININE 0.7 mg/dL (0.6-1.0); EST CRCL DRUG DOSING (CG) 108.01 mL/min; GLUCOSE RANDOM 123.0 mg/dL (74-106); POTASSIUM,K 3.2 mmol/L (3.5-5.1); PROTEIN TOTAL,TP 6.9 g/dL (6.4-8.2); SODIUM,NA 141.0 mmol/L (136-145)
[2025-06-04 14:10] LABS: LACTIC ACID 1.3 mmol/L (0.4-2.0)
[2025-06-04 14:11] LABS: ESTIMATED GFR 118.0 mL/min (>60)
[2025-06-04] MEDS: Ketorolac 30 MG/ML SDV IVPUSH ONE (14:13)
[2025-06-04] MEDS: diphenhydrAMINE 50 MG/ML SDV IVPUSH ONE (14:14)
[2025-06-04] MEDS: Prochlorperazine 10 MG/2 ML SDV IVPUSH ONE (14:18)
[2025-06-04] MEDS: Dexamethasone Sod Phos Preservative Free 10 MG/ML Vial IVPUSH ONE (14:22)
[2025-06-04] MEDS ORDERED: Sodium Chloride 0.9% 2.5 ML Syringe FLUSH PRN (17:02)
[2025-06-04] MEDS ORDERED: Ondansetron 4 MG Tab.DIS PO PRN (17:02)
[2025-06-04] MEDS ORDERED: Sennosides/Docusate Sodium 50-8.6 MG Tab PO PRN (17:02)
[2025-06-04] MEDS ORDERED: Benzocaine/Cetylpyridinium/Menthol Lozenge MUCMEM PRN (17:02)
[2025-06-04] MEDS ORDERED: Sodium Chloride 0.9% 10 ML Syringe FLUSH PRN (17:02)
[2025-06-04] MEDS: Potassium Chloride 10 MEQ Tab.ER PO ONE (17:45)
[2025-06-04] MEDS: Ketorolac 30 MG/ML SDV IVPUSH PRN (19:49)
[2025-06-05] MEDS: Phenol 1.4% Oral Spray 177 ML Bottle MUCMEM PRN (03:31)
[2025-06-05 05:51] LABS: BASOPHILS ABSOLUTE AUTO 0.01 K/uL (0.00-0.20); BASOPHILS PERCENT AUTO 0.1 % (0.0-1.0); EOSINOPHILS ABSOLUTE AUTO 0.00 K/uL (0.00-0.45); EOSINOPHILS PERCENT AUTO 0.0 % (0.0-6.0); IMMATURE GRAN ABSOLUTE AUTO 0.04 K/uL (0.00-0.05); IMMATURE GRAN PERCENT AUTO 0.5 % (0.0-0.4); LYMPHOCYTES ABSOLUTE AUTO 1.01 K/uL (1.00-4.80); LYMPHOCYTES PERCENT AUTO 12.2 % (24.0-44.0); MEAN PLATELET VOLUME 9.2 fL (9.4-12.3); MONOCYTES ABSOLUTE AUTO 0.55 K/uL (0.00-0.80); MONOCYTES PERCENT AUTO 6.6 % (0.0-8.0); NEUTROPHILS ABSOLUTE AUTO 6.68 K/uL (1.80-7.70); NEUTROPHILS PERCENT AUTO 80.6 % (41.0-71.0); NRBC ABSOLUTE 0.00 K/uL (0.00-0.02); NRBC PERCENT 0.0 /100WBC (0.0-0.2); PLATELET COUNT,PLT 180 K/uL (150-400); RED BLOOD CELL COUNT 4.23 M/uL (4.10-5.30); WHITE BLOOD CELL COUNT,WBC 8.29 K/uL (3.9-11.3)
[2025-06-05 06:14] LABS: BLOOD UREA NITROGEN,BUN 8.0 mg/dL (7.0-18.0); CARBON DIOXIDE,CO2 26.1 mmol/L (21.0-32.0); CHLORIDE,CL 107.0 mmol/L (98-107); CREATININE 0.7 mg/dL (0.6-1.0); EST CRCL DRUG DOSING (CG) 103.82 mL/min; GLUCOSE RANDOM 130.0 mg/dL (74-106); POTASSIUM,K 4.0 mmol/L (3.5-5.1); SODIUM,NA 141.0 mmol/L (136-145)
[2025-06-05 06:15] LABS: ESTIMATED GFR 118.0 mL/min (>60)
[2025-06-05] MEDS: diphenhydrAMINE 50 MG/ML SDV IVPUSH ONE (09:12)
[2025-06-05] MEDS: Ketorolac 30 MG/ML SDV IVPUSH ONE (09:21)
[2025-06-05 16:22] VITALS: BP 114/71; PULSE 71
== END 2025-06-05 16:33 | disposition home or self-care (01) ==
LOC: MW.ED 13:07 → MW.MS 16:50
PROVIDERS: ADMIT Internal Medicine; ATTEND Internal Medicine
DX: E86.0 Dehydration (principal); B27.99 Infectious mononucleosis, unspecified with other complication; Z88.0 Allergy status to penicillin; Z88.2 Allergy status to sulfonamides; Z20.822 Contact with and (suspected) exposure to COVID-19; Z79.899 Other long term (current) drug therapy
CPT/HCPCS: 36415; 70450; 80048; 80053; 83605; 83690; 83735; 85025; 87389; A9270; J0780; J1100; J1200; J1885; J2765; J7030; 99222; 99238; 99284

== ENCOUNTER 2025-06-05 23:45 | Observation (INO) | payer OTHER ==
[2025-06-05] MEDS ORDERED: Sodium Chloride 0.9% 10 ML Syringe FLUSH PRN (23:48)
[2025-06-05] MEDS ORDERED: Sodium Chloride 0.9% 2.5 ML Syringe FLUSH PRN (23:48)
[2025-06-06 00:11] LABS: BASOPHILS ABSOLUTE AUTO 0.03 K/uL (0.00-0.20); BASOPHILS PERCENT AUTO 0.3 % (0.0-1.0); EOSINOPHILS ABSOLUTE AUTO 0.02 K/uL (0.00-0.45); EOSINOPHILS PERCENT AUTO 0.2 % (0.0-6.0); IMMATURE GRAN ABSOLUTE AUTO 0.05 K/uL (0.00-0.05); IMMATURE GRAN PERCENT AUTO 0.4 % (0.0-0.4); LYMPHOCYTES ABSOLUTE AUTO 4.13 K/uL (1.00-4.80); LYMPHOCYTES PERCENT AUTO 35.9 % (24.0-44.0); MEAN PLATELET VOLUME 9.1 fL (9.4-12.3); MONOCYTES ABSOLUTE AUTO 0.91 K/uL (0.00-0.80); MONOCYTES PERCENT AUTO 7.9 % (0.0-8.0); NEUTROPHILS ABSOLUTE AUTO 6.38 K/uL (1.80-7.70); NEUTROPHILS PERCENT AUTO 55.3 % (41.0-71.0); NRBC ABSOLUTE 0.00 K/uL (0.00-0.02); NRBC PERCENT 0.0 /100WBC (0.0-0.2); PLATELET COUNT,PLT 227 K/uL (150-400); RED BLOOD CELL COUNT 4.11 M/uL (4.10-5.30); WHITE BLOOD CELL COUNT,WBC 11.52 K/uL (3.9-11.3)
[2025-06-06] MEDS: Ketorolac 30 MG/ML SDV IVPUSH ONE ×2 (00:15→02:00)
[2025-06-06] MEDS: diphenhydrAMINE 50 MG/ML SDV IVPUSH ONE (00:15)
[2025-06-06] MEDS: Prochlorperazine 10 MG/2 ML SDV IVPUSH ONE (00:22)
[2025-06-06 00:29] LABS: A/G RATIO 0.9 (0.9-1.6); ALANINE AMINOTRANSFERASE,ALT 38.0 IU/L (14-63); ASPARTATE AMNIOTRANSFERASE,AST 25.0 IU/L (15-37); BILIRUBIN TOTAL 0.2 mg/dL (0.2-1.0); BLOOD UREA NITROGEN,BUN 8.0 mg/dL (7.0-18.0); CARBON DIOXIDE,CO2 26.4 mmol/L (21.0-32.0); CHLORIDE,CL 106.0 mmol/L (98-107); CREATININE 0.8 mg/dL (0.6-1.0); EST CRCL DRUG DOSING (CG) 90.84 mL/min; GLUCOSE RANDOM 96.0 mg/dL (74-106); POTASSIUM,K 3.2 mmol/L (3.5-5.1); PROTEIN TOTAL,TP 6.8 g/dL (6.4-8.2); SODIUM,NA 142.0 mmol/L (136-145)
[2025-06-06 00:30] LABS: ESTIMATED GFR 100.0 mL/min (>60)
[2025-06-06] MEDS: Potassium Chloride 20 MEQ Tab.ER PO ONE (01:00)
[2025-06-06] MEDS: Magnesium Sulfate 2 GM/50 mL 2 GM in Premix Bag 1 BAG IV ONE (01:01)
[2025-06-06] MEDS: Ondansetron 4 MG/2 ML SDV IVPUSH ONE (02:04)
[2025-06-06] MEDS: droPERidol 2.5 MG/ML SDV IVPUSH ONE (05:32)
[2025-06-06] MEDS ORDERED: Ondansetron 4 MG/2 ML SDV IVPUSH PRN (06:24)
[2025-06-06] MEDS ORDERED: Sodium Chloride 0.9% 10 ML Syringe FLUSH PRN (07:53)
[2025-06-06] MEDS ORDERED: Sodium Chloride 0.9% 2.5 ML Syringe FLUSH PRN (07:53)
[2025-06-06 09:45] LABS: BASOPHILS ABSOLUTE AUTO 0.02 K/uL (0.00-0.20); BASOPHILS PERCENT AUTO 0.2 % (0.0-1.0); EOSINOPHILS ABSOLUTE AUTO 0.00 K/uL (0.00-0.45); EOSINOPHILS PERCENT AUTO 0.0 % (0.0-6.0); IMMATURE GRAN ABSOLUTE AUTO 0.09 K/uL (0.00-0.05); IMMATURE GRAN PERCENT AUTO 0.7 % (0.0-0.4); LYMPHOCYTES ABSOLUTE AUTO 1.82 K/uL (1.00-4.80); LYMPHOCYTES PERCENT AUTO 14.9 % (24.0-44.0); MEAN PLATELET VOLUME 8.8 fL (9.4-12.3); MONOCYTES ABSOLUTE AUTO 0.71 K/uL (0.00-0.80); MONOCYTES PERCENT AUTO 5.8 % (0.0-8.0); NEUTROPHILS ABSOLUTE AUTO 9.61 K/uL (1.80-7.70); NEUTROPHILS PERCENT AUTO 78.4 % (41.0-71.0); NRBC ABSOLUTE 0.00 K/uL (0.00-0.02); NRBC PERCENT 0.0 /100WBC (0.0-0.2); PLATELET COUNT,PLT 241 K/uL (150-400); RED BLOOD CELL COUNT 4.17 M/uL (4.10-5.30); WHITE BLOOD CELL COUNT,WBC 12.25 K/uL (3.9-11.3)
[2025-06-06 10:13] LABS: BLOOD UREA NITROGEN,BUN 5.0 mg/dL (7.0-18.0); CARBON DIOXIDE,CO2 25.4 mmol/L (21.0-32.0); CHLORIDE,CL 105.0 mmol/L (98-107); CREATININE 0.8 mg/dL (0.6-1.0); EST CRCL DRUG DOSING (CG) 90.84 mL/min; GLUCOSE RANDOM 112.0 mg/dL (74-106); POTASSIUM,K 3.5 mmol/L (3.5-5.1); SODIUM,NA 142.0 mmol/L (136-145)
[2025-06-06 10:15] LABS: ESTIMATED GFR 100.0 mL/min (>60)
[2025-06-06] MEDS ORDERED: Phenol 1.4% Oral Spray 177 ML Bottle MUCMEM PRN (17:01)
[2025-06-07] MEDS: Ondansetron 4 MG Tab.DIS PO PRN (01:48)
[2025-06-07 05:41] LABS: BASOPHILS ABSOLUTE AUTO 0.04 K/uL (0.00-0.20); BASOPHILS PERCENT AUTO 0.4 % (0.0-1.0); EOSINOPHILS ABSOLUTE AUTO 0.01 K/uL (0.00-0.45); EOSINOPHILS PERCENT AUTO 0.1 % (0.0-6.0); IMMATURE GRAN ABSOLUTE AUTO 0.06 K/uL (0.00-0.05); IMMATURE GRAN PERCENT AUTO 0.7 % (0.0-0.4); LYMPHOCYTES ABSOLUTE AUTO 2.38 K/uL (1.00-4.80); LYMPHOCYTES PERCENT AUTO 26.4 % (24.0-44.0); MEAN PLATELET VOLUME 9.0 fL (9.4-12.3); MONOCYTES ABSOLUTE AUTO 0.69 K/uL (0.00-0.80); MONOCYTES PERCENT AUTO 7.7 % (0.0-8.0); NEUTROPHILS ABSOLUTE AUTO 5.83 K/uL (1.80-7.70); NEUTROPHILS PERCENT AUTO 64.7 % (41.0-71.0); NRBC ABSOLUTE 0.00 K/uL (0.00-0.02); NRBC PERCENT 0.0 /100WBC (0.0-0.2); PLATELET COUNT,PLT 263 K/uL (150-400); RED BLOOD CELL COUNT 4.54 M/uL (4.10-5.30); WHITE BLOOD CELL COUNT,WBC 9.01 K/uL (3.9-11.3)
[2025-06-07 06:22] LABS: ALANINE AMINOTRANSFERASE,ALT 28.0 IU/L (14-63); ASPARTATE AMNIOTRANSFERASE,AST 17.0 IU/L (15-37); BILIRUBIN TOTAL 0.4 mg/dL (0.2-1.0); BLOOD UREA NITROGEN,BUN 9.0 mg/dL (7.0-18.0); CARBON DIOXIDE,CO2 28.3 mmol/L (21.0-32.0); CHLORIDE,CL 101.0 mmol/L (98-107); CREATININE 0.9 mg/dL (0.6-1.0); EST CRCL DRUG DOSING (CG) 80.75 mL/min; GLUCOSE RANDOM 99.0 mg/dL (74-106); POTASSIUM,K 3.4 mmol/L (3.5-5.1); PROTEIN TOTAL,TP 7.2 g/dL (6.4-8.2); SODIUM,NA 139.0 mmol/L (136-145)
[2025-06-07 06:23] LABS: A/G RATIO 0.9 (0.9-1.6); ESTIMATED GFR 87.0 mL/min (>60)
[2025-06-07] MEDS: Potassium Chloride 20 MEQ Tab.ER PO ONE (10:02)
[2025-06-07 12:05] VITALS: BP 102/61; PULSE 85
== END 2025-06-07 14:30 | disposition home or self-care (01) ==
LOC: MW.ED 23:45 → MW.MS 06-06 05:34
PROVIDERS: ADMIT Internal Medicine; ATTEND Internal Medicine
DX: G43.909 Migraine, unspecified, not intractable, without status migrainosus (principal); B27.90 Infectious mononucleosis, unspecified without complication; E87.6 Hypokalemia; E86.0 Dehydration; R11.2 Nausea with vomiting, unspecified; Z88.0 Allergy status to penicillin; Z88.8 Allergy status to other drugs, medicaments and biological substances; Z88.2 Allergy status to sulfonamides; Z79.899 Other long term (current) drug therapy
CPT/HCPCS: 36415; 80048; 80053; 83735; 85025; 85652; 86140; 96361; 96365; 96375; 96376; 99284; A9270; J1200; J1790; J1885; J2405; J2765; J3475; J7030; 99222; 99239; 99283; G0378

== ENCOUNTER 2025-06-08 10:48 | Emergency (ER) | payer OTHER ==
[2025-06-08 15:40] VITALS: BP 117/71; PULSE 89
== END 2025-06-08 15:40 | disposition home or self-care (01) ==
LOC: MW.ED 10:48
DX: H53.8 Other visual disturbances (principal); Z88.0 Allergy status to penicillin; Z88.2 Allergy status to sulfonamides; Z91.041 Radiographic dye allergy status; Z79.899 Other long term (current) drug therapy
CPT/HCPCS: 70450; 70450-26; 99283; 99284

== ENCOUNTER 2025-06-11 12:04 | Emergency (ER) | payer OTHER ==
[2025-06-11] MEDS: Alum Hydrox/Mag Hydrox/Simeth 15 ML, Lidocaine 2% 5 ML PO ONE (12:35)
[2025-06-14 01:54] VITALS: BP 114/68; PULSE 104
== END 2025-06-11 13:39 ==
LOC: MW.ED 12:04
DX: B27.99 Infectious mononucleosis, unspecified with other complication (principal); E78.00 Pure hypercholesterolemia, unspecified; Z88.0 Allergy status to penicillin; Z88.2 Allergy status to sulfonamides; Z91.048 Other nonmedicinal substance allergy status; Z88.8 Allergy status to other drugs, medicaments and biological substances; Z79.899 Other long term (current) drug therapy
CPT/HCPCS: 99283; J3490; A9270-GY